=== PATIENT | female | born 1995 | race Caucasian/White ===

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

== ENCOUNTER 2017-03-26 21:43 | Emergency (ER) | payer BC ==
--- NOTE | 2017-03-26 22:04 | EDM.PDOC ---
ED HPI GENERAL MEDICAL PROBLEM - General Chief Complaint: General Stated Complaint: MEDICAL CLEARANCE Time Seen by Provider: 03/26/17 21:54 - History of Present Illness INITIAL COMMENTS - FREE TEXT/NARRATIVE: HISTORY AND PHYSICAL: History of present illness: The patient is a 21-year-old 1 para 0 who is a partially 25+ weeks and is here with police for medical screening exam. 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 According to the officer she is going to be transported to [facility] in [place] for drug treatment but they do not have an officer to transport her today so they would like medical clearance so that she can stay in custody until tomorrow when she can be transported. The patient is comfortable with this plan and currently in the ED she denies any complaints. She has been eating and drinking normally and has had no fever chills chest pain or shortness of breath and no abdominal pain. She has no pelvic pain no vaginal bleeding no urinary complaints or flank pain. She states the baby is moving and she is scheduled to deliver the baby here at our hospital with our nurse computer repair instructor. She has actually no complaints for me Review of systems: As per history of present illness and below otherwise all systems reviewed and negative. Past medical history: As per history of present illness and as reviewed below otherwise noncontributory. Surgical history: As per history of present illness and as reviewed below otherwise noncontributory. Social history: No reported history of drug or alcohol abuse. Family history: As per history of present illness and as reviewed below otherwise noncontributory. Physical exam: General: Well-developed well-nourished female who is nontoxic cooperative and in no distress in the ED. Vital signs of been reviewed by me. HEENT: Atraumatic, normocephalic, pupils reactive, negative for conjunctival pallor or scleral icterus, mucous membranes moist, throat clear, neck supple, nontender, trachea midline. Lungs: Clear to auscultation, breath sounds equal bilaterally, chest nontender. Heart: S1S2, regular rate and rhythm no overt murmurs Abdomen: Soft, nondistended, nontender. there is a gravid nontender uterus with the fundus just above the umbilicus consistent with her stated gestational age Negative for masses or hepatosplenomegaly. Negative for costovertebral tenderness. Pelvis: Stable nontender. Genitourinary: Deferred. Rectal: Deferred. Extremities: Atraumatic, negative for cords or calf pain. Neurovascular unremarkable. Neuro: Awake, alert, oriented. Cranial nerves II through XII unremarkable. Cerebellum unremarkable. Motor and sensory unremarkable throughout. Exam nonfocal. Diagnostics: Accu-Chek = 102 heart [id number]=[id number] Therapeutics: None According to the officer bedside because she is over 25 weeks he is required to bring her here even though she has no stated medical complaints. Impression: Encounter for medical screening exam, third trimester stable Definitive disposition and diagnosis as appropriate pending reevaluation and review of above. - Related Data Allergies Allergy/AdvReac Type Severity Reaction Status Date / Time No Known Allergies Allergy Verified 10/30/15 18:50 Home Meds: Home Meds . [No Known Home Meds] 01/14/14 [History] . [No Known Home Meds] 09/03/15 [History] Past Medical History - Past Health History Medical/Surgical History: Denies Medical/Surgical History Musculoskeletal History: Reports: Back Pain, Chronic Psychiatric History: Reports: Addiction, ADD, ADHD, Anxiety, Suicide Attempt Other Psychiatric History: Never confirmed the Dx- was on stratera 2014 but once she was out of rehab she quit taking it. She states, one doctor would say yes et one would say no. She underwent testing to confirm or R?O for years. - Currently self medicating. 09/11/15- denies SI at this time but states hx of SI and cutting. - Past Surgical History HEENT Surgical History: Reports: Tonsillectomy Social & Family History - Family History Family Medical History: Noncontributory - Tobacco Use Smoking Status *Q: Current Some Day Smoker Years of Tobacco use: 2 Packs/Tins Daily: 0.1 Second Hand Smoke Exposure: No - Alcohol Use Days Per Week of Alcohol Use: 0 - Recreational Drug Use Recreational Drug Use: Yes Drug Use in Last 12 Months: Yes Recreational Drug Type: Reports: Heroin, Marijuana/Hashish, Methamphetamine, Methaqualone, Cocaine Recreational Drug Use Frequency: Daily ED ROS GENERAL - Review of Systems Review Of Systems: ROS reveals no pertinent complaints other than HPI. ED EXAM, GENERAL - Physical Exam Exam: See Below (See dictation) Departure - Departure Time of Disposition: 22:03 Disposition: Home, Self-Care 01 Condition: Good Clinical Impression: Encounter for medical screening examination, Third trimester - Discharge Information Forms: ED Department Discharge Additional Instructions: The following information is given to patients seen in the emergency department who are being discharged to home. This information is to outline your options for follow-up care. We provide all patients seen in our emergency department with a follow-up referral. The need for follow-up, as well as the timing and circumstances, are variable depending upon the specifics of your emergency department visit. If you don't have a primary care physician on staff, we will provide you with a referral. We always advise you to contact your personal physician following an emergency department visit to inform them of the circumstance of the visit and for follow-up with them and/or the need for any referrals to a consulting specialist. The emergency department will also refer you to a specialist when appropriate. This referral assures that you have the opportunity for followup care with a specialist. All of these measure are taken in an effort to provide you with optimal care, which includes your followup. Under all circumstances we always encourage you to contact your private physician who remains a resource for coordinating your care. When calling for followup care, please make the office aware that this follow-up is from your recent emergency room visit. If for any reason you are refused follow-up, please contact the [facility] emergency department at and ask to speak to the emergency department charge nurse. [facility] [address] [address] Please continue with your care as scheduled and return to ER as needed and as discussed
[2017-03-27 01:24] VITALS: BP 124/60
== END 2017-03-26 22:11 | disposition home or self-care (01) ==
LOC: MW.ED 21:43
DX: Z02.89 Encounter for other administrative examinations (principal); O99.323 Drug use complicating pregnancy, third trimester; F15.90 Other stimulant use, unspecified, uncomplicated; O99.333 Smoking (tobacco) complicating pregnancy, third trimester; F17.210 Nicotine dependence, cigarettes, uncomplicated; F90.9 Attention-deficit hyperactivity disorder, unspecified type; F41.9 Anxiety disorder, unspecified; Z91.5 Personal history of self-harm
CPT/HCPCS: 82962; 99283

== ENCOUNTER 2017-07-12 00:17 | Inpatient (IN) | payer BC ==
[2017-07-12] MEDS ORDERED: Misoprostol 200 MCG Tab PO PRN (03:17)
[2017-07-12] MEDS ORDERED: Sodium Chloride 0.9% 10 ML Syringe FLUSH PRN (03:17)
[2017-07-12] MEDS ORDERED: Butorphanol 1 MG/ML SDV IVPUSH PRN (03:17)
[2017-07-12] MEDS ORDERED: Water For Irrigation,Sterile 1,000 ML Container IRR PRN (03:17)
[2017-07-12] MEDS ORDERED: Sodium Chloride 0.9% 2.5 ML Syringe FLUSH PRN (03:17)
[2017-07-12] MEDS ORDERED: Carboprost Tromethamine 250 MCG/1 ML Amp IM PRN (03:17)
[2017-07-12] MEDS ORDERED: Methylergonovine 0.2 MG/1 ML Amp IM PRN (03:17)
[2017-07-12] MEDS ORDERED: Lidocaine 1% 50 ML MDV INJECT PRN (03:17)
[2017-07-12] MEDS ORDERED: Oxytocin/0.9 % Sodium Chloride 30 UNIT/500 ML BAG IV SCH ×2 (03:30→12:15)
[2017-07-12] MEDS: Lactated Ringers 1,000 ML IV SCH ×3 (04:21→15:20)
[2017-07-12] MEDS: Nalbuphine 10 MG/1 ML Vial IVPUSH PRN ×2 (04:35→11:23)
--- NOTE | 2017-07-12 08:15 | PCM.LDHP ---
L&D History of Present Illness - General Date of Service: 07/12/17 Admit Problem/Dx: Patient Status Order with Admit Dx/Problem 07/12/17 03:17 Patient Status [ADT] Routine Admission Diagnosis/Problem Admission Diagnosis/Problem 07/12/17 08:15 21yo EDC 07/13/2017 39 6/7wks comes in labor, A-, RI, GBS neg Source of Information: Patient History Limitations: Reports: No Limitations - History of Present Illness Pain Score: 8 Improves with: Reports: None Worsens with: Reports: None Associated Symptoms: Reports: N - Related Data Allergies/Adverse Reactions: Allergies Allergy/AdvReac Type Severity Reaction Status Date / Time No Known Allergies Allergy Verified 10/30/15 18:50 Home Medications: Home Meds Vit W-Ca,Fe,FA(<1 mg) [ Vitamins] 1 each PO DAILY 03/26/17 [ History] Past Medical History - Past Health History Medical/Surgical History: Denies 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 She states, one doctor would say yes et one would say no. She underwent testing to confirm or R?O for years. - Currently self medicating. 09/11/15- denies SI at this time but states hx of SI and cutting. - Infectious Disease History Infectious Disease History: Reports: Chicken Pox - Past Surgical History HEENT Surgical History: Reports: Tonsillectomy Social & Family History - Family History Family Medical History: Noncontributory Cardiac: Reports: [place] - Tobacco Use Smoking Status *Q: Former Smoker Years of Tobacco use: 5 Packs/Tins Daily: 0.5 Used Tobacco, but Quit: Yes Month Tobacco Last Used: october Second Hand Smoke Exposure: Yes - Caffeine Use Caffeine Use: Reports: Coffee, Soda - Alcohol Use Days Per Week of Alcohol Use: 0 - Recreational Drug Use Recreational Drug Use: Yes Drug Use in Last 12 Months: Yes Recreational Drug Type: Reports: Methamphetamine Recreational Drug Use Frequency: Binges H&P Review of Systems - Review of Systems: Review Of Systems: See Below General: Reports: No Symptoms HEENT: Reports: No Symptoms Pulmonary: Reports: No Symptoms Cardiovascular: Reports: No Symptoms Gastrointestinal: Reports: No Symptoms Genitourinary: Reports: No Symptoms Musculoskeletal: Reports: No Symptoms Skin: Reports: No Symptoms Psychiatric: Reports: No Symptoms Neurological: Reports: No Symptoms Hematologic/Lymphatic: Reports: No Symptoms Immunologic: Reports: No Symptoms L&D Exam - Exam Exam: See Below - Vital Signs Weight: 67.585 kg - OB Specific Contraction Intensity: Moderate to Strong Movement: Active Heart Tones: Present Heart Tones per Min: 120 Heart Rate (FHR) Variability: Moderate (6-25 bmp) Presentation: Vertex Estimated Weight: 3300 - Jenkins Score Jenkins Score Cervix Position: Midposition Jenkins Score Consistency: Soft Jenkins Score Effacement: >80% Jenkins Score Dilation: 3-4 cm Jenkins Score 's Station: -1 ,0 Jenkins Score Total: 10 - Exam General: Alert, Oriented HEENT: Hearing Intact, PERRLA Lungs: Clear to Auscultation, Normal Respiratory Effort Cardiovascular: Regular Rate, Regular Rhythm GI/Abdominal Exam: Soft, Non-Tender, No Organomegaly (gravid), No Distention Rectal Exam: Deferred Genitourinary: Normal external exam, Normal bimanual exam, Cervical fluid Back Exam: Full Range of Motion Extremities: Normal Range of Motion, Non-Tender, No Pedal Edema, Normal Capillary Refill Skin: Warm, Dry, Intact Neurological: Reflexes Equal Bilateral, Normal Speech, Normal Tone Psychiatric: Alert, Normal Affect, Normal Mood - Patient Data Lab Results Last 24 hrs: Laboratory Results - last 24 hr 07/12/17 07/12/17 Range/Units 04:26 04:26 WBC 10.47 (4.0-11.0) K/uL RBC 3.97 L (4.30-5.90) M/uL Hgb 10.2 L (12.0-16.0) g/dL Hct 31.5 L (36.0-46.0) % MCV 79.3 L (80.0-98.0) fL MCH 25.7 L (27.0-32.0) pg MCHC 32.4 (31.0-37.0) g/dL RDW Std Deviation 40.8 (28.0-62.0) fl RDW Coeff of Shakira 14 (11.0-15.0) % Plt Count 294 (150-400) K/uL MPV 10.10 (7.40-12.00) fL Nucleated RBC % 0.0 /100WBC Nucleated RBCs # 0 K/uL Blood Type A NEGATIVE Antibody Screen NEGATIVE Result Diagrams: 07/12/17 04:26 - Problem List (1) Supervision of normal IUP (intrauterine ) in primigravida SNOMED Code(s): 03637121, 463416616, 074426745 ICD Code: Z34.00 - ENCNTR FOR SUPRVSN OF NORMAL FIRST , UNSP TRIMESTER Status: Acute Current Visit: Yes Qualifiers: Trimester: third trimester Qualified Code(s): Z34.03 - Encounter for supervision of normal first , third trimester Problem List Initiated/Reviewed/Updated: Yes Orders Last 24hrs: Active Orders 24 hr Category Date Time Status Patient Status [ADT] Routine ADT 07/12/17 03:17 Active Heart Tones [RC] CONTINUOUS Care 07/12/17 03:17 Active Non Stress Test [RC] PER UNIT ROUTINE Care 07/12/17 03:17 Active May Shower [RC] ASDIRECTED Care 07/12/17 03:17 Active Notify Provider [RC] PRN Care 07/12/17 03:17 Active Up ad Mariana [RC] ASDIRECTED Care 07/12/17 03:17 Active Vaginal Exam [RC] PRN Care 07/12/17 03:17 Active Vital Signs [RC] PER UNIT ROUTINE Care 07/12/17 03:17 Active Butorphanol [Stadol] Med 07/12/17 03:17 Active 1 mg IVPUSH ASDIRECTED PRN Carboprost Tromethamine [Hemabate DS] Med 07/12/17 03:17 Active 250 mcg IM ASDIRECTED PRN Lactated Ringers [Ringers, Lactated] 1,000 ml Med 07/12/17 03:30 Active IV ASDIRECTED Lidocaine 1% [Xylocaine 1%] Med 07/12/17 03:17 Active 50 ml INJECT .ONCE PRN Methylergonovine [Methergine] Med 07/12/17 03:17 Active 0.2 mg IM ASDIRECTED PRN Misoprostol [Cytotec] Med 07/12/17 03:17 Active 200 mcg PO .ONCE PRN Nalbuphine [Nubain] Med 07/12/17 03:17 Active 10 mg IVPUSH ASDIRECTED PRN Oxytocin/0.9 % Sodium Chloride [Oxytocin 30 Unit/500 ML Med 07/12/17 03:30 Active -NS] 30 unit in 500 ml IV ASDIRECTED Sodium Chloride 0.9% [Saline Flush] Med 07/12/17 03:17 Active 10 ml FLUSH ASDIRECTED PRN Sodium Chloride 0.9% [Saline Flush] Med 07/12/17 03:17 Active 2.5 ml FLUSH ASDIRECTED PRN Water For Irrigation,Sterile [Sterile Water for Med 07/12/17 03:17 Active Irrigation] 1,000 ml IRR ASDIRECTED PRN Scalp Electrode [WOMSER] Per Unit Routine Oth 07/12/17 03:17 Ordered Peripheral IV Insertion Adult [OM.PC] Routine Oth 07/12/17 03:17 Ordered Resuscitation Status Routine Resus Stat 07/12/17 03:17 Ordered Medication Orders Butorphanol Tartrate (Stadol) 1 mg IVPUSH ASDIRECTED PRN PRN Reason: Pain Carboprost Tromethamine (Hemabate Ds) 250 mcg IM ASDIRECTED PRN PRN Reason: Post Hemorrhage Lactated Ringer's (Ringers, Lactated) 1,000 mls @ 150 mls/hr IV ASDIRECTED [facility] Last Admin: 07/12/17 04:21 Dose: 150 mls/hr Oxytocin/Sodium Chloride (Oxytocin 30 Unit/500 Ml-Ns) 30 unit in 500 mls @ 999 mls/hr IV ASDIRECTED [facility] Lidocaine HCl (Xylocaine 1%) 50 ml INJECT .ONCE PRN PRN Reason: Laceration repair Methylergonovine Maleate (Methergine) 0.2 mg IM ASDIRECTED PRN PRN Reason: Post Hemorrhage Misoprostol (Cytotec) 200 mcg PO .ONCE PRN PRN Reason: Post Hemorrhage Nalbuphine HCl (Nubain) 10 mg IVPUSH ASDIRECTED PRN PRN Reason: Pain (severe 7-10) Last Admin: 07/12/17 04:35 Dose: 10 mg Sodium Chloride (Saline Flush) 10 ml FLUSH ASDIRECTED PRN PRN Reason: Keep Vein Open Sodium Chloride (Saline Flush) 2.5 ml FLUSH ASDIRECTED PRN PRN Reason: Keep Vein Open Sterile Water (Sterile Water For Irrigation) 1,000 ml IRR ASDIRECTED PRN PRN Reason: delivery Assessment/Plan Comment:: Labor A:21yo EDC 07/13/2017 39 6/7wks comes in labor, A-, RI, GBS neg P: Admit to L&D, pain medication or epidural prn, anticipate , Dr Le updated on pt status
[2017-07-12] MEDS ORDERED: fentaNYL 100 MCG/2 ML SDV ONE (13:57)
[2017-07-12] MEDS ORDERED: Ropivacaine HCl/PF 100 ML ONE (13:58)
[2017-07-12] MEDS ORDERED: Ropivacaine 0.2% 2 MG/ML 20 ML SDV ONE (13:58)
--- NOTE | 2017-07-12 14:34 | PCM.PREANE ---
Preanesthetic Assessment - Procedure Proposed Procedure: labor epidural - Anesthesia/Transfusion/Family Hx Anesthesia History: Prior Anesthesia Without Reaction (wisdom teeth, t/a) Family History of Anesthesia Reaction: No Transfusion History: No Prior Transfusion(s) - Review of Systems General: No Symptoms Pulmonary: No Symptoms Cardiovascular: No Symptoms Gastrointestinal: No Symptoms Neurological: No Symptoms Other: Reports: Depression, Anxiety (add,adhd,suicide attempt hx,self harm hx) - Physical Assessment Height: 1.65 m Weight: 67.585 kg ASA Class: 2 Mental Status: Alert & Oriented x3 Airway Class: Mallampati = 2 Dentition: Reports: Normal Dentition Thyro-Mental Finger Breadths: 3 Mouth Opening Finger Breadths: 3 ROM/Head Extension: Full Lungs: Clear to Auscultation, Normal Respiratory Effort Cardiovascular: Regular Rate, Regular Rhythm - Lab Values: Laboratory Last Values WBC 10.47 K/uL (4.0-11.0) 07/12/17 04:26 RBC 3.97 M/uL (4.30-5.90) L 07/12/17 04:26 Hgb 10.2 g/dL (12.0-16.0) L 07/12/17 04:26 Hct 31.5 % (36.0-46.0) L 07/12/17 04:26 MCV 79.3 fL (80.0-98.0) L 07/12/17 04:26 MCH 25.7 pg (27.0-32.0) L 07/12/17 04:26 MCHC 32.4 g/dL (31.0-37.0) 07/12/17 04:26 RDW Std Deviation 40.8 fl (28.0-62.0) 07/12/17 04:26 RDW Coeff of Shakira 14 % (11.0-15.0) 07/12/17 04:26 Plt Count 294 K/uL (150-400) 07/12/17 04:26 MPV 10.10 fL (7.40-12.00) 07/12/17 04:26 Nucleated RBC % 0.0 /100WBC 07/12/17 04:26 Nucleated RBCs # 0 K/uL 07/12/17 04:26 Blood Type A NEGATIVE 07/12/17 04:26 Antibody Screen NEGATIVE 07/12/17 04:26 - Allergies Allergies/Adverse Reactions: Allergies Allergy/AdvReac Type Severity Reaction Status Date / Time No Known Allergies Allergy Verified 10/30/15 18:50 - Blood Blood Available: Yes Product(s) Available: PRBC - Acknowledgements Anesthesia Type Planned: Epidural Pt an Appropriate Candidate for the Planned Anesthesia: Yes Alternatives and Risks of Anesthesia Discussed w Pt/Guardian: Yes Pt/Guardian Understands and Agrees with Anesthesia Plan: Yes PreAnesthesia Questionnaire - Past Health History Medical/Surgical History: Denies 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 She states, one doctor would say yes et one would say no. She underwent testing to confirm or R?O for years. - Currently self medicating. 09/11/15- denies SI at this time but states hx of SI and cutting. - Infectious Disease History Infectious Disease History: Reports: Chicken Pox - Past Surgical History HEENT Surgical History: Reports: Tonsillectomy - SUBSTANCE USE Smoking Status *Q: Former Smoker Tobacco Use Within Last Twelve Months: Cigarettes Second Hand Smoke Exposure: Yes Days Per Week of Alcohol Use: 0 Recreational Drug Use History: Yes Recreational Drug Type: Reports: Methamphetamine - HOME MEDS Home Medications: Home Meds Vit W-Ca,Fe,FA(<1 mg) [ Vitamins] 1 each PO DAILY 03/26/17 [ History] - CURRENT (IN HOUSE) MEDS Current Meds: Current Medications Butorphanol Tartrate (Stadol) 1 mg IVPUSH ASDIRECTED PRN PRN Reason: Pain Carboprost Tromethamine (Hemabate Ds) 250 mcg IM ASDIRECTED PRN PRN Reason: Post Hemorrhage Lactated Ringer's (Ringers, Lactated) 1,000 mls @ 150 mls/hr IV ASDIRECTED [facility] Last Admin: 07/12/17 14:06 Dose: 150 mls/hr Oxytocin/Sodium Chloride (Oxytocin 30 Unit/500 Ml-Ns) 30 unit in 500 mls @ 999 mls/hr IV ASDIRECTED [facility] Oxytocin/Sodium Chloride (Oxytocin 30 Unit/500 Ml-Ns) 30 unit in 500 mls @ 2 mls/hr IV TITRATE ANITA; 2 MUNITS/MIN PRN Reason: Protocol Last Titration: 07/12/17 13:37 Dose: 2 munits/min, 2 mls/hr Lidocaine HCl (Xylocaine 1%) 50 ml INJECT .ONCE PRN PRN Reason: Laceration repair Methylergonovine Maleate (Methergine) 0.2 mg IM ASDIRECTED PRN PRN Reason: Post Hemorrhage Misoprostol (Cytotec) 200 mcg PO .ONCE PRN PRN Reason: Post Hemorrhage Nalbuphine HCl (Nubain) 10 mg IVPUSH ASDIRECTED PRN PRN Reason: Pain (severe 7-10) Last Admin: 07/12/17 11:23 Dose: 10 mg Sodium Chloride (Saline Flush) 10 ml FLUSH ASDIRECTED PRN PRN Reason: Keep Vein Open Sodium Chloride (Saline Flush) 2.5 ml FLUSH ASDIRECTED PRN PRN Reason: Keep Vein Open Sterile Water (Sterile Water For Irrigation) 1,000 ml IRR ASDIRECTED PRN PRN Reason: delivery Discontinued Medications Fentanyl (Sublimaze) Confirm Administered Dose 300 mcg .ROUTE .STK-MED ONE Stop: 07/12/17 13:58 Ropivacaine (Naropin 0.2%) Confirm Administered Dose 100 mls @ as directed .ROUTE .STK-MED ONE Stop: 07/12/17 13:59 Ropivacaine (Naropin 0.2%) Confirm Administered Dose 20 ml .ROUTE .STK-MED ONE Stop: 07/12/17 13:59
--- NOTE | 2017-07-12 14:42 | PCM.PRNOTE ---
- Free Text/Narrative Note: called for pt in pain with labor. chart reviewed, pt identified. discussed procedure with pt including risks of nerve pain, nerve damage, bleeding, infection. pt agrees, consent signed previously. Pt sitting up, sterile betadine prep x 3, sterile drape. 1% lidocaine SQ at L3. #25 touhy CHARBEL saline os x 2 on left. needle redirect and advanced without further problem. no heme, no paresthesia with needle advancement. catheter placed to 12 cm at skin. test dose 1.5% lidocaine with epinephrine 1:200,000. Negative reaction noted. bolus of 100 mcg fentanyl with 4 ml ropivicaine via epidural catheter. Pt felt relief within two contractions. Level with cold/wet sensation noted to be T10 bilat. Pt in ALLISON position. Epidural drip of 0.2% ropivicaine with fentanyl 2 mcg /ml started at 8 ml/hr with PCEA bolus set at 5 ml/15 min with hour limit of 28 ml. educated regarding use of PCEA pump. Pain level 2/10, no complications noted
[2017-07-12] MEDS ORDERED: Lanolin 100% Cream 7 GM Tube TOP PRN (22:21)
[2017-07-12] MEDS ORDERED: Witch Hazel Medicated Pads 40/Jar TOP PRN (22:21)
[2017-07-12] MEDS ORDERED: Acetaminophen 500 MG Tab PO PRN (22:21)
[2017-07-12] MEDS ORDERED: Docusate Sodium 100 MG Cap PO PRN (22:21)
[2017-07-12] MEDS ORDERED: Benzocaine/Menthol 20%-0.5% Spray 78 GM Cannister TOP PRN (22:21)
[2017-07-12] MEDS ORDERED: Ibuprofen 400 MG Tab PO PRN (22:21)
[2017-07-12] MEDS ORDERED: Bisacodyl 10 MG Supp RECTAL PRN (22:21)
--- NOTE | 2017-07-12 23:13 | OR ---
SURGEON: Farhat Le MD DATE OF PROCEDURE: DELIVERY NOTE: Ms. Wong is 21-year-old primigravida. She is followed in our clinic primarily by our nurse refrigeration specialist, Renea Braun. The patient has no complication prenatally. She is admitted in active labor. She required some Pitocin augmentation to enhance the labor. She had epidural anesthesia for labor analgesia. The patient became complete-complete and she was pushed for an hour and a half and she was able to accomplish normal spontaneous vaginal delivery of a female fetus. score reported to be 8 and 9. The weight is not available. The placenta delivered spontaneous complete and intact without any problem. There was no need for episiotomy and there was no laceration. No perineal or labial laceration. Estimated blood loss was 250 to 300 mL in this . The heart rate was category 1 through the entire process of labor. There was no complication. KRISTAL / EVITA /[id number]
[2017-07-13] MEDS: Ibuprofen 800 MG Tab PO PRN ×3 (06:01→20:25)
--- NOTE | 2017-07-13 06:52 | PCM48HPAN ---
Post Anesthesia Note - EVALUATION WITHIN 48HRS OF ANESTHETIC Vital Signs in Normal Range: Yes Patient Participated in Evaluation: Yes Respiratory Function Stable: Yes Airway Patent: Yes Cardiovascular Function Stable: Yes Hydration Status Stable: Yes Pain Control Satisfactory: Yes Nausea and Vomiting Control Satisfactory: Yes Mental Status Recovered: Yes
[2017-07-13] MEDS: Acetaminophen 500 MG Tab PO PRN (09:32)
--- NOTE | 2017-07-13 09:59 | PCM.PNPP ---
- General Info Date of Service: 07/13/17 Functional Status: Reports: Pain Controlled - Review of Systems General: Reports: No Symptoms HEENT: Reports: No Symptoms Pulmonary: Reports: No Symptoms Cardiovascular: Reports: No Symptoms Gastrointestinal: Reports: No Symptoms Genitourinary: Reports: No Symptoms Musculoskeletal: Reports: No Symptoms Skin: Reports: No Symptoms Neurological: Reports: No Symptoms Psychiatric: Reports: No Symptoms - General Info Date of Service: 07/13/17 - Patient Data Vital Signs - Most Recent: Last Vital Signs Temp 36.9 C 07/13/17 04:30 Pulse 74 07/13/17 04:30 Resp 16 07/13/17 04:30 BP 112/52 L 07/13/17 04:30 Pulse Ox 98 07/13/17 04:30 Weight - Most Recent: 67.585 kg I&O - Last 24 Hours: Intake & Output 07/12/17 07/13/17 07/13/17 22:59 06:59 14:59 Output Total 1000 Balance -1000 Lab Results - Last 24 Hours: Laboratory Results - last 24 hr 07/13/17 Range/Units 05:44 Hgb 9.4 L (12.0-16.0) g/dL Hct 29.0 L (36.0-46.0) % Med Orders - Current: Current Medications Acetaminophen (Tylenol Extra Strength) 500 mg PO Q4H PRN PRN Reason: Pain Acetaminophen (Tylenol Extra Strength) 1,000 mg PO Q4H PRN PRN Reason: Pain Last Admin: 07/13/17 09:32 Dose: 1,000 mg Benzocaine/Menthol (Dermoplast Pain Relief 20%-0.5% [place]) 78 gm TOP ASDIRECTED PRN PRN Reason: Perineal Comfort Measure Bisacodyl (Dulcolax) 10 mg RECTAL .ONCE PRN PRN Reason: Constipation Butorphanol Tartrate (Stadol) 1 mg IVPUSH ASDIRECTED PRN PRN Reason: Pain Carboprost Tromethamine (Hemabate Ds) 250 mcg IM ASDIRECTED PRN PRN Reason: Post Hemorrhage Docusate Sodium (Colace) 100 mg PO BID PRN PRN Reason: Constipation Emollient Ointment (Lansinoh Hpa) 0 gm TOP ASDIRECTED PRN PRN Reason: Sore Nipples Lactated Ringer's (Ringers, Lactated) 1,000 mls @ 150 mls/hr IV ASDIRECTED ANITA Last Admin: 07/12/17 15:20 Dose: 150 mls/hr Oxytocin/Sodium Chloride (Oxytocin 30 Unit/500 Ml-Ns) 30 unit in 500 mls @ 999 mls/hr IV ASDIRECTED ANITA Oxytocin/Sodium Chloride (Oxytocin 30 Unit/500 Ml-Ns) 30 unit in 500 mls @ 2 mls/hr IV TITRATE ANITA; 2 MUNITS/MIN PRN Reason: Protocol Last Titration: 07/12/17 23:30 Dose: 500 munits/min, 500 mls/hr Ibuprofen (Motrin) 400 mg PO Q4H PRN PRN Reason: Pain Ibuprofen (Motrin) 800 mg PO Q6H PRN PRN Reason: Pain Last Admin: 07/13/17 06:01 Dose: 800 mg Lidocaine HCl (Xylocaine 1%) 50 ml INJECT .ONCE PRN PRN Reason: Laceration repair Methylergonovine Maleate (Methergine) 0.2 mg IM ASDIRECTED PRN PRN Reason: Post Hemorrhage Misoprostol (Cytotec) 200 mcg PO .ONCE PRN PRN Reason: Post Hemorrhage Nalbuphine HCl (Nubain) 10 mg IVPUSH ASDIRECTED PRN PRN Reason: Pain (severe 7-10) Last Admin: 07/12/17 11:23 Dose: 10 mg Oxycodone HCl (Oxycodone) 5 mg PO Q2H PRN PRN Reason: Pain Sodium Chloride (Saline Flush) 10 ml FLUSH ASDIRECTED PRN PRN Reason: Keep Vein Open Sodium Chloride (Saline Flush) 2.5 ml FLUSH ASDIRECTED PRN PRN Reason: Keep Vein Open Sterile Water (Sterile Water For Irrigation) 1,000 ml IRR ASDIRECTED PRN PRN Reason: delivery Witch Maryam (Tucks) 1 pad TOP ASDIRECTED PRN PRN Reason: comfort care Discontinued Medications Fentanyl (Sublimaze) Confirm Administered Dose 300 mcg .ROUTE .STK-MED ONE Stop: 07/12/17 13:58 Ropivacaine (Naropin 0.2%) Confirm Administered Dose 100 mls @ as directed .ROUTE .STK-MED ONE Stop: 07/12/17 13:59 Ropivacaine (Naropin 0.2%) Confirm Administered Dose 20 ml .ROUTE .STK-MED ONE Stop: 07/12/17 13:59 - Interaction Infant Disposition, : [place] in Room with Family Infant Interaction: Holding Infant Feeding: Attempted ; Nursed Fair/Poor Support Person: , Mother, Sister, Significant Other - Recovery Exam Fundal Tone: Firm Fundal Level: 1 Fingerbreadths Below Umbilicus Fundal Placement: Midline Lochia Amount: Scant Lochia Color: Rubra/Red Perineum Description: Intact, Minimal Bruising/Swelling Episiotomy/Laceration: None Bladder Status: Nonpalpable Urinary Elimination: Voided - Exam General: Alert, Oriented HEENT: Pupils Equal Neck: Supple Lungs: Clear to Auscultation, Normal Respiratory Effort Cardiovascular: Regular Rate, Regular Rhythm GI/Abdominal Exam: Normal Bowel Sounds, Soft, Non-Tender, No Organomegaly, No Distention, No Abnormal Bruit, No Mass, Pelvis Stable Extremities: Normal Inspection, Normal Range of Motion, Non-Tender, No Pedal Edema, Normal Capillary Refill Skin: Warm, Dry, Intact Wound/Incisions: Healing Well Neurological: No New Focal Deficit Psy/Mental Status: Alert, Normal Affect, Normal Mood - Problem List Review Problem List Initiated/Reviewed/Updated: Yes - My Orders Last 24 Hours: My Active Orders 07/12/17 22:21 Patient Status [ADT] Routine May Shower [RC] ASDIRECTED Up ad [place] [RC] ASDIRECTED Vital Signs [RC] PER UNIT ROUTINE Acetaminophen [Tylenol Extra Strength] 1,000 mg PO Q4H PRN Acetaminophen [Tylenol Extra Strength] 500 mg PO Q4H PRN Benzocaine/Menthol [Dermoplast Pain Relief 20%-0.5% [place]] 78 gm TOP ASDIRECTED PRN Bisacodyl [Dulcolax] 10 mg RECTAL .ONCE PRN Docusate Sodium [Colace] 100 mg PO BID PRN Ibuprofen [Motrin] 400 mg PO Q4H PRN Ibuprofen [Motrin] 800 mg PO Q6H PRN Lanolin [Lansinoh HPA] See Dose Instructions TOP ASDIRECTED PRN Witch Maryam [Tucks] 1 pad TOP ASDIRECTED PRN oxyCODONE 5 mg PO Q2H PRN Assess Lochia [WOMSER] Per Unit Routine Assess Uterine Involution [WOMSER] Per Unit Routine Peripheral IV Discontinue [OM.PC] Routine - Plan Plan:: Labor A:21yo EDC 07/13/2017 39 6/7wks comes in labor, A-, RI, GBS neg P: Admit to L&D, pain medication or epidural prn, anticipate , Dr Le updated on pt status
[2017-07-14] MEDS: oxyCODONE 5 MG Tab PO PRN ×3 (08:52→13:27)
--- NOTE | 2017-07-14 09:49 | PCM.PNPP ---
- General Info Date of Service: 07/14/17 Functional Status: Reports: Pain Controlled - Review of Systems General: Reports: No Symptoms HEENT: Reports: No Symptoms Pulmonary: Reports: No Symptoms Cardiovascular: Reports: No Symptoms Gastrointestinal: Reports: No Symptoms Genitourinary: Reports: No Symptoms Musculoskeletal: Reports: No Symptoms Skin: Reports: No Symptoms Neurological: Reports: No Symptoms Psychiatric: Reports: No Symptoms - General Info Date of Service: 07/14/17 - Patient Data Vital Signs - Most Recent: Last Vital Signs Temp 36.6 C 07/14/17 04:00 Pulse 73 07/13/17 09:15 Resp 16 07/14/17 04:00 BP 116/55 L 07/14/17 04:00 Pulse Ox 98 07/14/17 04:00 Weight - Most Recent: 67.585 kg Med Orders - Current: Current Medications Acetaminophen (Tylenol Extra Strength) 500 mg PO Q4H PRN PRN Reason: Pain Acetaminophen (Tylenol Extra Strength) 1,000 mg PO Q4H PRN PRN Reason: Pain Last Admin: 07/13/17 09:32 Dose: 1,000 mg Benzocaine/Menthol (Dermoplast Pain Relief 20%-0.5% [place]) 78 gm TOP ASDIRECTED PRN PRN Reason: Perineal Comfort Measure Bisacodyl (Dulcolax) 10 mg RECTAL .ONCE PRN PRN Reason: Constipation Butorphanol Tartrate (Stadol) 1 mg IVPUSH ASDIRECTED PRN PRN Reason: Pain Carboprost Tromethamine (Hemabate Ds) 250 mcg IM ASDIRECTED PRN PRN Reason: Post Hemorrhage Docusate Sodium (Colace) 100 mg PO BID PRN PRN Reason: Constipation Last Admin: 07/14/17 08:53 Dose: 100 mg Emollient Ointment (Lansinoh Hpa) 0 gm TOP ASDIRECTED PRN PRN Reason: Sore Nipples Lactated Ringer's (Ringers, Lactated) 1,000 mls @ 150 mls/hr IV ASDIRECTED ANITA Last Admin: 07/12/17 15:20 Dose: 150 mls/hr Oxytocin/Sodium Chloride (Oxytocin 30 Unit/500 Ml-Ns) 30 unit in 500 mls @ 999 mls/hr IV ASDIRECTED [facility] Oxytocin/Sodium Chloride (Oxytocin 30 Unit/500 Ml-Ns) 30 unit in 500 mls @ 2 mls/hr IV TITRATE ANITA; 2 MUNITS/MIN PRN Reason: Protocol Last Titration: 07/12/17 23:30 Dose: 500 munits/min, 500 mls/hr Ibuprofen (Motrin) 400 mg PO Q4H PRN PRN Reason: Pain Ibuprofen (Motrin) 800 mg PO Q6H PRN PRN Reason: Pain Last Admin: 07/13/17 20:25 Dose: 800 mg Lidocaine HCl (Xylocaine 1%) 50 ml INJECT .ONCE PRN PRN Reason: Laceration repair Methylergonovine Maleate (Methergine) 0.2 mg IM ASDIRECTED PRN PRN Reason: Post Hemorrhage Misoprostol (Cytotec) 200 mcg PO .ONCE PRN PRN Reason: Post Hemorrhage Nalbuphine HCl (Nubain) 10 mg IVPUSH ASDIRECTED PRN PRN Reason: Pain (severe 7-10) Last Admin: 07/12/17 11:23 Dose: 10 mg Oxycodone HCl (Oxycodone) 5 mg PO Q2H PRN PRN Reason: Pain Last Admin: 07/14/17 08:52 Dose: 5 mg Sodium Chloride (Saline Flush) 10 ml FLUSH ASDIRECTED PRN PRN Reason: Keep Vein Open Sodium Chloride (Saline Flush) 2.5 ml FLUSH ASDIRECTED PRN PRN Reason: Keep Vein Open Sterile Water (Sterile Water For Irrigation) 1,000 ml IRR ASDIRECTED PRN PRN Reason: delivery Witch Maryam (Tucks) 1 pad TOP ASDIRECTED PRN PRN Reason: comfort care Discontinued Medications Fentanyl (Sublimaze) Confirm Administered Dose 300 mcg .ROUTE .STK-MED ONE Stop: 07/12/17 13:58 Ropivacaine (Naropin 0.2%) Confirm Administered Dose 100 mls @ as directed .ROUTE .STK-MED ONE Stop: 07/12/17 13:59 Ropivacaine (Naropin 0.2%) Confirm Administered Dose 20 ml .ROUTE .STK-MED ONE Stop: 07/12/17 13:59 - Infant Interaction Disposition, : [place] in Room with Family Interaction: Holding Feeding: Attempted ; Nursed Fair/Poor Support Person: , Mother, Sister, Significant Other - Recovery Exam Fundal Tone: Firm Fundal Level: 1 Fingerbreadths Below Umbilicus Fundal Placement: Midline Lochia Amount: Scant Lochia Color: Rubra/Red Perineum Description: Intact, Minimal Bruising/Swelling Episiotomy/Laceration: None Bladder Status: Nonpalpable Urinary Elimination: Voided - Exam General: Alert, Oriented HEENT: Pupils Equal Neck: Supple Lungs: Clear to Auscultation, Normal Respiratory Effort Cardiovascular: Regular Rate, Regular Rhythm GI/Abdominal Exam: Normal Bowel Sounds, Soft, Non-Tender, No Organomegaly, No Distention, No Abnormal Bruit, No Mass, Pelvis Stable Extremities: Normal Inspection, Normal Range of Motion, Non-Tender, No Pedal Edema, Normal Capillary Refill Skin: Warm, Dry, Intact Wound/Incisions: Healing Well Neurological: No New Focal Deficit Psy/Mental Status: Alert, Normal Affect, Normal Mood - Problem List Review Problem List Initiated/Reviewed/Updated: Yes - Assessment Assessment:: Well status post normal spontaneous vaginal delivery we would send her home today - Plan Plan:: Labor A:21yo EDC 07/13/2017 39 6/7wks comes in labor, A-, RI, GBS neg P: Admit to L&D, pain medication or epidural prn, anticipate , Dr Le updated on pt status
[2017-07-14] MEDS: Acetaminophen 500 MG Tab PO PRN (13:27)
[2017-07-14 16:15] VITALS: BP 114/67
== END 2017-07-14 14:00 | disposition home or self-care (01) | DRG 560 ==
LOC: MW.OBCHECK 00:17 → MW.OB 00:19 → MW.OBCHECK 03:17 → MW.OB 03:17 → OBSVTOIN 22:12 → MW.OB 07-13 00:08
PROVIDERS: ADMIT Obstetrics & Gynecology; ATTEND Obstetrics & Gynecology
PROC: 10E0XZZ Delivery of Products of Conception, External Approach (ICD-10-PCS; principal; 2017-07-12)
DX: O80 Encounter for full-term uncomplicated delivery (principal); Z3A.39 39 weeks gestation of pregnancy; Z37.0 Single live birth
CPT/HCPCS: 36415; 51702; 59025; 59409; 85014; 85018; 85027; 86850; 86900; 86901; A9270-GY; J2300; J2590; J2795; J3010; J7120

== ENCOUNTER 2019-01-05 19:18 | Emergency (ER) | payer BC ==
--- NOTE | 2019-01-05 19:39 | EDM.PDOC ---
ED HPI GENERAL MEDICAL PROBLEM - General Chief Complaint: Skin Complaint Stated Complaint: INFECTION IN THE ARM Time Seen by Provider: 01/05/19 19:19 Source of Information: Reports: Patient History Limitations: Reports: No Limitations - History of Present Illness INITIAL COMMENTS - FREE TEXT/NARRATIVE: HISTORY AND PHYSICAL: History of present illness: Patient is a 23-year-old female presents to the ED today for concern of redness at the site of injection that she had injected meth with a few days ago. Patient states she had a relapse and her drug abuse and injected meth and since then has noticed slight redness at the injection site. Patient denies any other symptoms at this time and denies any other health history. Patient denies fever, chills, chest pain, shortness of breath, or cough. Denies headache, neck stiff ness, change in vision, syncope, or near syncope. Denies nausea, vomiting, abdominal pain, diarrhea, constipation, or dysuria. Has not noted any blood in urine or stool. Patient has been eating and drinking appropriately. Review of systems: As per history of present illness and below otherwise all systems reviewed and negative. Past medical history: As per history of present illness and as reviewed below otherwise noncontributory. Surgical history: As per history of present illness and as reviewed below otherwise noncontributory. Social history: See social history for further information Family history: As per history of present illness and as reviewed below otherwise noncontributory. Physical exam: General: Patient is alert, oriented, and in no acute distress. Patient sitting comfortably on exam table. HEENT: Atraumatic, normocephalic, pupils equal and reactive bilaterally, negative for conjunctival pallor or scleral icterus, mucous membranes moist, TMs normal bilaterally, throat clear, neck supple, nontender, trachea midline. No drooling or trismus noted. No meningeal signs. No hot potato voice noted. Lungs: Clear to auscultation, breath sounds equal bilaterally, chest nontender. Heart: S1S2, regular rate and rhythm without overt murmur Abdomen: Soft, nondistended, nontender. Negative for masses or hepatosplenomegaly. Negative for costovertebral tenderness. Pelvis: Stable nontender. Genitourinary: Deferred. Rectal: Deferred. Skin: There is a 1 cm circumferential area of erythema in the right antecubital space with slight induration where patient had injected. There is no tracking of the redness and no apparent abscess. Skin is intact. No rashes or other lesions noted. Extremities: See skin Atraumatic, negative for cords or calf pain. Neurovascular unremarkable. Neuro: Awake, alert, oriented. Cranial nerves II through XII unremarkable. Cerebellum unremarkable. Motor and sensory unremarkable throughout. Exam nonfocal. Notes: Dr. Walker verbally involved in patient care. Discussed the importance for follow-up with a primary care provider. Voices understanding and is agreeable to plan of care. Denies any further questions or concerns at this time. Diagnostics: CBC, BMP, Elbow XR Therapeutics: None Prescription: Bactrim Impression: Localized cellulitis of antecubital fossa Drug abuse Plan: 1. Take medications as prescribed. Monitor for signs of infection as discussed. You can alternate ibuprofen and Tylenol as directed for pain and discomfort. 2. Please do not inject or use drugs.Follow up with primary care provider as discussed. 3. Return to the ED as needed and as discussed. Definitive disposition and diagnosis as appropriate pending reevaluation and review of above. right arm Pain Score (Numeric/FACES): 2 - Related Data Allergies Allergy/AdvReac Type Severity Reaction Status Date / Time No Known Allergies Allergy Verified 01/05/19 19:23 Home Meds: Home Meds Citalopram Hydrobromide [Celexa] 40 mg PO DAILY 03/24/18 [History] Lurasidone HCl [Latuda] 0 mg PO DAILY 01/05/19 [History] buPROPion [Wellbutrin] 0 mg PO DAILY 01/05/19 [History] Past Medical History - Past Health History Medical/Surgical History: Denies Medical/Surgical History HEENT History: Reports: None Cardiovascular History: Reports: None Respiratory History: Reports: None Gastrointestinal History: Reports: None Genitourinary History: Reports: None [employer]ER [employer] 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 She states, one doctor would say yes et one would say no. She underwent testing to confirm or R?O for years. - Currently self medicating. 09/11/15- denies SI at this time but states hx of SI and cutting. Endocrine/Metabolic History: Reports: None Hematologic History: Reports: None Immunologic History: Reports: None Oncologic (Cancer) History: Reports: None Dermatologic History: Reports: None - Infectious Disease History Infectious Disease History: Reports: Chicken Pox - Past Surgical History HEENT Surgical History: Reports: Tonsillectomy Social & Family History - Family History Family Medical History: Noncontributory Cardiac: Reports: MD - Caffeine Use Caffeine Use: Reports: Coffee, Soda ED ROS GENERAL - Review of Systems Review Of Systems: ROS reveals no pertinent complaints other than HPI. ED EXAM, SKIN/RASH Exam: See Below (See dictation) Course - Vital Signs Last Recorded V/S: Last Vital Signs Temp 36.1 C 01/05/19 19:20 Pulse 76 01/05/19 19:20 Resp 18 01/05/19 19:20 BP 117/86 01/05/19 19:20 Pulse Ox 95 01/05/19 19:20 - Orders/Labs/Meds Orders: Active Orders 24 hr Category Date Time Status Elbow 2V Rt [CR] Stat Exams 01/05/19 19:59 Taken Labs: Laboratory Tests 01/05/19 01/05/19 Range/Units 19:46 19:46 WBC 4.53 (4.0-11.0) K/uL RBC 4.11 L (4.30-5.90) M/uL Hgb 12.9 (12.0-16.0) g/dL Hct 38.7 (36.0-46.0) % MCV 94.2 (80.0-98.0) fL MCH 31.4 (27.0-32.0) pg MCHC 33.3 (31.0-37.0) g/dL RDW Std Deviation 45.1 (28.0-62.0) fl RDW Coeff of Shakira 13 (11.0-15.0) % Plt Count 289 (150-400) K/uL MPV 9.50 (7.40-12.00) fL Neut % (Auto) 45.7 L (48.0-80.0) % Lymph % (Auto) 41.5 H (16.0-40.0) % [place] % (Auto) 7.7 (0.0-15.0) % Eos % (Auto) 4.0 (0.0-7.0) % Baso % (Auto) 1.1 (0.0-1.5) % Neut # (Auto) 2.1 (1.4-5.7) K/uL Lymph # (Auto) 1.9 (0.6-2.4) K/uL [place] # (Auto) 0.4 (0.0-0.8) K/uL Eos # (Auto) 0.2 (0.0-0.7) K/uL Baso # (Auto) 0.1 (0.0-0.1) K/uL Nucleated RBC % 0.0 /100WBC Nucleated RBCs # 0 K/uL Sodium 138 (136-145) mmol/L Potassium 4.0 (3.5-5.1) mmol/L Chloride 103 (98-107) mmol/L Carbon Dioxide 25.7 (21.0-32.0) mmol/L BUN 19 H (7.0-18.0) mg/dL Creatinine 0.9 (0.6-1.0) mg/dL Est Cr Clr Drug Dosing 96.15 mL/min Estimated GFR (MDRD) > 60.0 ml/min Glucose 109 H (74-106) mg/dL Calcium 9.2 (8.5-10.1) mg/dL Departure - Departure Time of Disposition: 20:24 Disposition: Home, Self-Care 01 Clinical Impression: Cellulitis of antecubital fossa, Drug abuse - Discharge Information Referrals: PCP,None [Primary Care Provider] - Forms: ED Department Discharge Additional Instructions: The following information is given to patients seen in the emergency department who are being discharged to home. This information is to outline your options for follow-up care. We provide all patients seen in our emergency department with a follow-up referral. The need for follow-up, as well as the timing and circumstances, are variable depending upon the specifics of your emergency department visit. If you don't have a primary care physician on staff, we will provide you with a referral. We always advise you to contact your personal physician following an emergency department visit to inform them of the circumstance of the visit and for follow-up with them and/or the need for any referrals to a consulting specialist. The emergency department will also refer you to a specialist when appropriate. This referral assures that you have the opportunity for follow-up care with a specialist. All of these measure are taken in an effort to provide you with optimal care, which includes your follow-up. Under all circumstances we always encourage you to contact your private physician who remains a resource for coordinating your care. When calling for follow-up care, please make the office aware that this follow-up is from your recent emergency room visit. If for any reason you are refused follow-up, please contact the [facility] Emergency Department at and asked to speak to the emergency department charge nurse. [facility] [address] [place] [id number] [facility] [address] [place] [id number] 1. Take medications as prescribed. Monitor for signs of infection as discussed. You can alternate ibuprofen and Tylenol as directed for pain and discomfort. 2. Please do not inject or use drugs.Follow up with primary care provider as discussed. 3. Return to the ED as needed and as discussed.
[2019-01-05 20:10] LABS: CHLORIDE,CL 103 mmol/L (98-107); SODIUM,NA 138 mmol/L (136-145)
--- NOTE | 2019-01-05 20:26 | CR ---
INDICATION: r/o FB and gas, IV drug user RIGHT ELBOW No fracture, dislocation, or destructive lesion of bone is seen. No significant arthritic changes or soft tissue abnormalities are identified. No radiopaque foreign body or soft tissue gas is demonstrated. IMPRESSION: Negative right elbow radiographs. LOREN FINLEY MD [facility] Dictated by: Nicolás Finley MD @ 01/05/2019 20:24:55 (Electronically Signed)
[2019-01-05 20:39] VITALS: BP 124/70
== END 2019-01-05 20:37 | disposition home or self-care (01) ==
LOC: MW.ED 19:18
DX: O99.712 Diseases of the skin and subcutaneous tissue complicating pregnancy, second trimester (principal); L03.113 Cellulitis of right upper limb; O99.342 Other mental disorders complicating pregnancy, second trimester; F41.9 Anxiety disorder, unspecified; F32.9 Major depressive disorder, single episode, unspecified; F90.9 Attention-deficit hyperactivity disorder, unspecified type; Z79.899 Other long term (current) drug therapy; Z3A.25 25 weeks gestation of pregnancy
CPT/HCPCS: 36415; 73070-26-RT; 73070-RT; 80048; 85025; 99283; 99283-25

== ENCOUNTER 2019-01-29 16:27 | Emergency (ER) | payer BC ==
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
[2019-01-29 17:25] LABS: ACETAMINOPHEN <2.0 ug/mL
[2019-01-29 17:34] LABS: CHLORIDE,CL 106 mmol/L (98-107); SODIUM,NA 140 mmol/L (136-145)
[2019-01-29 17:49] VITALS: BP 134/73
== END 2019-01-29 19:00 ==
LOC: MW.ED 16:27
DX: F32.9 Major depressive disorder, single episode, unspecified (principal); F41.9 Anxiety disorder, unspecified; F17.210 Nicotine dependence, cigarettes, uncomplicated; Z98.890 Other specified postprocedural states; Z79.899 Other long term (current) drug therapy
CPT/HCPCS: 36415; 80053; 80305; 81003; 81025; 84443; 85025; 99285; G0480

== ENCOUNTER 2019-02-07 23:18 | Emergency (ER) | payer BC ==
--- NOTE | 2019-02-07 23:47 | EDM.PDOC ---
ED HPI GENERAL MEDICAL PROBLEM - General Chief Complaint: General Stated Complaint: DIZZINESS Time Seen by Provider: 02/07/19 23:35 - History of Present Illness INITIAL COMMENTS - FREE TEXT/NARRATIVE: HISTORY AND PHYSICAL: History of present illness: The patient is a 23-year-old female with a history of bipolar who was recently here on January 29 and transferred for suicidal ideation to [facility] where she was evaluated and was started on Depakote as a new medication and she says that she started feeling dizzy episodically 4 days after starting the new medication. She is not having any vomiting until one time yesterday but she has had nausea intermittently and the dizziness is like a spinning-like sensation that comes and goes and is not consistent. She is not passing out or blacking out and she has no head neck or back pain no chest pain or shortness of breath no fevers or chills and no abdominal complaints. The patient says she has been clean from drugs for 31 days and she has a scheduled appointment tomorrow with her counselor to discuss these medication issues. She is here tonight only at the insistence of her mom to get checked out. Admits she drinks mostly caffeinated products and is not good hydrating The patient tells me that the sensation she has is more with position change but can also occur when she lays flat and it is a spinning-like feeling not lightheadedness like she's going to pass out she has no visual changes Review of systems: As per history of present illness and below otherwise all systems reviewed and negative. Past medical history: As per history of present illness and as reviewed below otherwise noncontributory. Surgical history: As per history of present illness and as reviewed below otherwise noncontributory. Social history: No reported history of drug or alcohol abuse. Family history: As per history of present illness and as reviewed below otherwise noncontributory. Physical exam: General: Well-developed well-nourished female who is nontoxic and vital signs were noted by me HEENT: Atraumatic, normocephalic, pupils reactive, EOMs are intact, there is no nystagmus, negative for conjunctival pallor or scleral icterus, mucous membranes moist, throat clear, neck supple, nontender, trachea midline. No cervical adenopathy or nuchal rigidity and TMs are normal bilaterally Lungs: Clear to auscultation, breath sounds equal bilaterally, chest nontender. Heart: S1S2, regula rate and rhythm no overt murmurs Abdomen: Soft, nondistended, nontender. Negative for masses or hepatosplenomegaly. Negative for costovertebral tenderness. Pelvis: Stable nontender. Genitourinary: Deferred. Rectal: Deferred. Extremities: Atraumatic, negative for cords or calf pain. Neurovascular unremarkable. No edema full range of motion without defects or deficits Neuro: Awake, alert, oriented. Cranial nerves II through XII unremarkable. Cerebellum unremarkable. Motor and sensory unremarkable throughout. Exam nonfocal. Gait was steady into the ED Diagnostics: EKG orthostatic vital CBC CMP magnesium troponin UA UDS [employer]: Discussed with the patient that I would hold the dose of her Depakote this evening, she says she takes it in the night before sleep, until she sees his new physician/provider tomorrow to discuss this medication and its dose and her side effects. She is aware that all of her other workup is normal and I will give her some Zofran for nausea that she can take at home as needed. Advised on reasons to return Impression: Episodic dizziness with nausea, rule out new medication reaction Definitive disposition and diagnosis as appropriate pending reevaluation and review of above. low back Pain Score (Numeric/FACES): 3 - Related Data Allergies Allergy/AdvReac Type Severity Reaction Status Date / Time No Known Allergies Allergy Verified 01/29/19 16:31 Home Meds: Home Meds Citalopram Hydrobromide [Celexa] 40 mg PO DAILY 03/24/18 [History] Lurasidone HCl [Latuda] 40 mg PO DAILY 01/05/19 [History] Divalproex Sodium [Depakote] 1,500 mg PO DAILY 02/07/19 [History] Past Medical History - Past Health History Medical/Surgical History: Denies Medical/Surgical History HEENT History: Reports: None Cardiovascular History: Reports: None Respiratory History: Reports: None Gastrointestinal History: Reports: None Genitourinary History: Reports: None 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 She states, one doctor would say yes et one would say no. She underwent testing to confirm or R?O for years. - Currently self medicating. 09/11/15- denies SI at this time but states hx of SI and cutting. Endocrine/Metabolic History: Reports: None Hematologic History: Reports: None Immunologic History: Reports: None Oncologic (Cancer) History: Reports: None Dermatologic History: Reports: None - Infectious Disease History Infectious Disease History: Reports: Chicken Pox - Past Surgical History Head Surgeries/Procedures: Reports: None HEENT Surgical History: Reports: Tonsillectomy Social & Family History - Family History Family Medical History: Noncontributory Cardiac: Reports: NH - Tobacco Use Smoking Status *Q: Current Every Day Smoker Years of Tobacco use: 2 Packs/Tins Daily: 1 - Caffeine Use Caffeine Use: Reports: Other Other Caffeine Use: dietary suppliments - Recreational Drug Use Recreational Drug Use: No ED ROS GENERAL - Review of Systems Review Of Systems: ROS reveals no pertinent complaints other than HPI. ED EXAM, GENERAL - Physical Exam Exam: See Below (See dictation) Course - Vital Signs Last Recorded V/S: Last Vital Signs Temp 35.7 C 02/07/19 23:20 Pulse 81 02/07/19 23:20 Resp 18 02/07/19 23:20 BP 126/73 02/07/19 23:20 Pulse Ox 98 02/07/19 23:20 Orthostatic Blood Pressure [ 106/70 Standing] Orthostatic Blood Pressure [ 114/71 Sitting] Orthostatic Blood Pressure [ 117/66 Supine] - Orders/Labs/Meds Orders: Active Orders 24 hr Category Date Time Status EKG Documentation Completion [RC] STAT Care 02/07/19 23:34 Active Orthostatic Vital Signs [RC] ASDIRECTED Care 02/07/19 23:34 Active Labs: Laboratory Tests 02/07/19 02/07/19 02/07/19 Range/Units 23:30 23:30 23:30 WBC (4.0-11.0) K/uL RBC (4.30-5.90) M/uL Hgb (12.0-16.0) g/dL Hct (36.0-46.0) % MCV (80.0-98.0) fL MCH (27.0-32.0) pg MCHC (31.0-37.0) g/dL RDW Std Deviation (28.0-62.0) fl RDW Coeff of Shakira (11.0-15.0) % Plt Count (150-400) K/uL MPV (7.40-12.00) fL Neut % (Auto) (48.0-80.0) % Lymph % (Auto) (16.0-40.0) % Tyrrell % (Auto) (0.0-15.0) % Eos % (Auto) (0.0-7.0) % Baso % (Auto) (0.0-1.5) % Neut # (Auto) (1.4-5.7) K/uL Lymph # (Auto) (0.6-2.4) K/uL Tyrrell # (Auto) (0.0-0.8) K/uL Eos # (Auto) (0.0-0.7) K/uL Baso # (Auto) (0.0-0.1) K/uL Nucleated RBC % /100WBC Nucleated RBCs # K/uL Sodium (136-145) mmol/L Potassium (3.5-5.1) mmol/L Chloride (98-107) mmol/L Carbon Dioxide (21.0-32.0) mmol/L BUN (7.0-18.0) mg/dL Creatinine (0.6-1.0) mg/dL Est Cr Clr Drug Dosing mL/min Estimated GFR (MDRD) ml/min Glucose (74-106) mg/dL Calcium (8.5-10.1) mg/dL Magnesium (1.8-2.4) mg/dL Total Bilirubin (0.2-1.0) mg/dL AST (15-37) IU/L ALT (14-63) IU/L Alkaline Phosphatase (46-116) U/L Troponin I (0.000-0.056) ng/mL Total Protein (6.4-8.2) g/dL Albumin (3.4-5.0) g/dL Globulin (2.6-4.0) g/dL Albumin/Globulin Ratio (0.9-1.6) Urine Color YELLOW Urine Appearance CLEAR Urine pH 7.0 (5.0-8.0) Ur Specific [place] 1.015 (1.001-1.035) Urine Protein NEGATIVE (NEGATIVE) mg/dL Urine Glucose (UA) NEGATIVE (NEGATIVE) mg/dL Urine Ketones NEGATIVE (NEGATIVE) mg/dL Urine Occult Blood MODERATE H (NEGATIVE) Urine Nitrite NEGATIVE (NEGATIVE) Urine Bilirubin NEGATIVE (NEGATIVE) Urine Urobilinogen 0.2 (<2.0) EU/dL Ur Leukocyte Esterase NEGATIVE (NEGATIVE) Urine RBC 0-5 (0-2/HPF) Urine WBC 0-3 (0-5/HPF) Ur Epithelial Cells FEW (NONE-FEW) Amorphous Sediment LIGHT (NEGATIVE) Urine Bacteria FEW (NEGATIVE) Urine Mucus LIGHT (NONE-MOD) Urine HCG, Qual NEGATIVE (NEGATIVE) Urine Opiates Screen NEGATIVE (NEGATIVE) Ur Oxycodone Screen NEGATIVE (NEGATIVE) Urine Methadone Screen NEGATIVE (NEGATIVE) Ur Barbiturates Screen NEGATIVE (NEGATIVE) Ur Phencyclidine Scrn NEGATIVE (NEGATIVE) Ur Amphetamine Screen NEGATIVE (NEGATIVE) U Methamphetamines Scrn NEGATIVE (NEGATIVE) U Benzodiazepines Scrn NEGATIVE (NEGATIVE) U Cocaine Metab Screen NEGATIVE (NEGATIVE) U Marijuana (THC) Screen NEGATIVE (NEGATIVE) 02/08/19 02/08/19 Range/Units 00:23 00:23 WBC 5.99 (4.0-11.0) K/uL RBC 4.53 (4.30-5.90) M/uL Hgb 14.2 (12.0-16.0) g/dL Hct 41.9 (36.0-46.0) % MCV 92.5 (80.0-98.0) fL MCH 31.3 (27.0-32.0) pg MCHC 33.9 (31.0-37.0) g/dL RDW Std Deviation 42.0 (28.0-62.0) fl RDW Coeff of Shakira 13 (11.0-15.0) % Plt Count 331 (150-400) K/uL MPV 9.70 (7.40-12.00) fL Neut % (Auto) 48.3 (48.0-80.0) % Lymph % (Auto) 39.7 (16.0-40.0) % Tyrrell % (Auto) 8.7 (0.0-15.0) % Eos % (Auto) 2.3 (0.0-7.0) % Baso % (Auto) 1.0 (0.0-1.5) % Neut # (Auto) 2.9 (1.4-5.7) K/uL Lymph # (Auto) 2.4 (0.6-2.4) K/uL Tyrrell # (Auto) 0.5 (0.0-0.8) K/uL Eos # (Auto) 0.1 (0.0-0.7) K/uL Baso # (Auto) 0.1 (0.0-0.1) K/uL Nucleated RBC % 0.0 /100WBC Nucleated RBCs # 0 K/uL Sodium 141 (136-145) mmol/L Potassium 3.6 (3.5-5.1) mmol/L Chloride 103 (98-107) mmol/L Carbon Dioxide 28.7 (21.0-32.0) mmol/L BUN 14 (7.0-18.0) mg/dL Creatinine 0.9 (0.6-1.0) mg/dL Est Cr Clr Drug Dosing 96.15 mL/min Estimated GFR (MDRD) > 60.0 ml/min Glucose 104 (74-106) mg/dL Calcium 9.2 (8.5-10.1) mg/dL Magnesium 1.9 (1.8-2.4) mg/dL Total Bilirubin 0.4 (0.2-1.0) mg/dL AST 16 (15-37) IU/L ALT 30 (14-63) IU/L Alkaline Phosphatase 88 (46-116) U/L Troponin I < 0.050 (0.000-0.056) ng/mL Total Protein 7.3 (6.4-8.2) g/dL Albumin 3.9 (3.4-5.0) g/dL Globulin 3.4 (2.6-4.0) g/dL Albumin/Globulin Ratio 1.1 (0.9-1.6) Urine Color Urine Appearance Urine pH (5.0-8.0) Ur Specific Estero (1.001-1.035) Urine Protein (NEGATIVE) mg/dL Urine Glucose (UA) (NEGATIVE) mg/dL Urine Ketones (NEGATIVE) mg/dL Urine Occult Blood (NEGATIVE) Urine Nitrite (NEGATIVE) Urine Bilirubin (NEGATIVE) Urine Urobilinogen (<2.0) EU/dL Ur Leukocyte Esterase (NEGATIVE) Urine RBC (0-2/HPF) Urine WBC (0-5/HPF) Ur Epithelial Cells (NONE-FEW) Amorphous Sediment (NEGATIVE) Urine Bacteria (NEGATIVE) Urine Mucus (NONE-MOD) Urine HCG, Qual (NEGATIVE) Urine Opiates Screen (NEGATIVE) Ur Oxycodone Screen (NEGATIVE) Urine Methadone Screen (NEGATIVE) Ur Barbiturates Screen (NEGATIVE) Ur Phencyclidine Scrn (NEGATIVE) Ur Amphetamine Screen (NEGATIVE) U Methamphetamines Scrn (NEGATIVE) U Benzodiazepines Scrn (NEGATIVE) U Cocaine Metab Screen (NEGATIVE) U Marijuana (THC) Screen (NEGATIVE) Departure - Departure Time of Disposition: 01:08 Disposition: Home, Self-Care 01 Condition: Good Clinical Impression: Dizziness Drug reaction Qualifiers: Encounter type: initial encounter Qualified Code(s): T50.905A - Adverse effect of unspecified drugs, medicaments and biological substances, initial encounter - Discharge Information Referrals: PCP,None [Primary Care Provider] - Forms: ED Department Discharge Additional Instructions: The following information is given to patients seen in the emergency department who are being discharged to home. This information is to outline your options for follow-up care. We provide all patients seen in our emergency department with a follow-up referral. The need for follow-up, as well as the timing and circumstances, are variable depending upon the specifics of your emergency department visit. If you don't have a primary care physician on staff, we will provide you with a referral. We always advise you to contact your personal physician following an emergency department visit to inform them of the circumstance of the visit and for follow-up with them and/or the need for any referrals to a consulting specialist. The emergency department will also refer you to a specialist when appropriate. This referral assures that you have the opportunity for followup care with a specialist. All of these measure are taken in an effort to provide you with optimal care, which includes your followup. Under all circumstances we always encourage you to contact your private physician who remains a resource for coordinating your care. When calling for followup care, please make the office aware that this follow-up is from your recent emergency room visit. If for any reason you are refused follow-up, please contact the [facility] emergency department at and ask to speak to the emergency department charge nurse. [facility] Primary care- Internal Medicine and Family [place] [id number] [place] [address] Please hold your Depakote dose this evening and discuss your symptoms with respect to this medication with your provider during your appointment later today. Use Zofran as you have been prescribed from [facility] for nausea and any vomiting and return to ER as needed and as discussed. You may also connect with one of our clinic providers for further care and reevaluation. - My Orders Last 24 Hours: My Active Orders 02/07/19 23:34 EKG Documentation Completion [RC] STAT Orthostatic Vital Signs [RC] ASDIRECTED - Assessment/Plan Last 24 Hours: My Active Orders 02/07/19 23:34 EKG Documentation Completion [RC] STAT Orthostatic Vital Signs [RC] ASDIRECTED
[2019-02-08 01:04] LABS: CHLORIDE,CL 103 mmol/L (98-107); SODIUM,NA 141 mmol/L (136-145)
[2019-02-08] MEDS ORDERED: Ondansetron 4 MG Tab.DIS PO ONE (01:09)
[2019-02-08 01:23] VITALS: BP 108/77
== END 2019-02-08 01:23 | disposition home or self-care (01) ==
LOC: MW.ED 23:18
DX: O99.89 Other specified diseases and conditions complicating pregnancy, childbirth and the puerperium (principal); R42 Dizziness and giddiness; R11.0 Nausea; T42.6X5A Adverse effect of other antiepileptic and sedative-hypnotic drugs, initial encounter; O99.342 Other mental disorders complicating pregnancy, second trimester; F31.9 Bipolar disorder, unspecified; O99.332 Smoking (tobacco) complicating pregnancy, second trimester; F17.210 Nicotine dependence, cigarettes, uncomplicated; Z79.899 Other long term (current) drug therapy; Z3A.33 33 weeks gestation of pregnancy
CPT/HCPCS: 36415; 80053; 80305; 81001; 81025; 83735; 84484; 85025; 93005; 99284; A9270; 99283

== ENCOUNTER 2019-02-27 16:33 | Emergency (ER) | payer BC ==
[2019-02-27] MEDS ORDERED: Dicyclomine 10 MG Cap PO ONE (16:58)
[2019-02-27] MEDS ORDERED: Ondansetron 4 MG Tab.DIS PO ONE (16:58)
--- NOTE | 2019-02-27 17:04 | EDM.PDOC ---
ED HPI GENERAL MEDICAL PROBLEM - General Chief Complaint: Gastrointestinal Problem Stated Complaint: NAUSEA AND STOMACH PAIN Time Seen by Provider: 02/27/19 16:47 - History of Present Illness INITIAL COMMENTS - FREE TEXT/NARRATIVE: HISTORY AND PHYSICAL: History of present illness: The patient is a 23-year-old female with a history of depression and IV drug abuse who has not used methamphetamine for the last 2 months and presents with a 2 week history of crampy abdominal pain mostly on the right side associated with 3 episodes of loose diarrhea every day for the last 2 weeks and episodic vomiting. She says she only vomited intermittently and she is able to tolerate fluids and eat otherwise and has not had any fevers or chills. She has no urinary complaints and is on the Depoprovera shot and denies she says that she does not have any history of food intolerance or ulcer disease and has never had a GI workup. When she presented to triage and also on my interview of her she's concerned about hepatitis C is the cause of her symptoms. She says she is not drinking excessive amounts of caffeine and she has had no cough or upper respiratory symptoms and no flank pain. She does not have black or bloody stools says the stool is just loose and watery but it is not copious. Review of systems: As per history of present illness and below otherwise all systems reviewed and negative. Past medical history: As per history of present illness and as reviewed below otherwise noncontributory. Surgical history: As per history of present illness and as reviewed below otherwise noncontributory. Social history: No reported history of drug or alcohol abuse. Family history: As per history of present illness and as reviewed below otherwise noncontributory. Physical exam: General: Well-developed well-nourished female who looks a little anxious on my evaluation but is cooperative and interactive and vital signs are noted by me. HEENT: Atraumatic, normocephalic, pupils reactive, negative for conjunctival pallor or scleral icterus, mucous membranes moist, throat clear, neck supple, nontender, trachea midline. Lungs: Clear to auscultation, breath sounds equal bilaterally, chest nontender. Heart: S1S2, regula rate and rhythm no overt murmurs Abdomen: Soft, nondistended, no sounds are normoactive. There is some mild tenderness on palpation in the upper abdomen but there is no rebound or guarding and no gross localization or gross tenderness on my evaluation. Negative for masses or hepatosplenomegaly. Negative for costovertebral tenderness. Pelvis: Stable nontender. Genitourinary: Deferred. Rectal: Deferred. Extremities: Atraumatic, negative for cords or calf pain. Neurovascular unremarkable. Neuro: Awake, alert, oriented. Cranial nerves II through XII unremarkable. Cerebellum unremarkable. Motor and sensory unremarkable throughout. Exam nonfocal. Diagnostics: CBC CMP amylase lipase UA UDS hepatitis C antibody hepatitis panel I asked the patient to save any stool that she may produce for testing as this may give us more information Therapeutics: Annem[employer] Morton Patient is aware that the hepatitis panel is a send out and she has not produced any stool here for study. With her labs being all within normal limits I will not perform a CT scan or other imaging at this time as her symptoms are more chronic ongoing for 2 weeks and her physical findings are not overly impressive nor does she have any fevers or persistent vomiting. Her hepatitis C antibody test is currently pending and requires 30 more minutes and the patient is willing to wait for that test results. She would like referral to our clinic for further evaluation regardless of this test results. Patient's hepatitis C antibody is negative and she is aware Impression: Abdominal pain with diarrhea subacute, episodic vomiting stable; history of drug abuse improved Definitive disposition and diagnosis as appropriate pending reevaluation and review of above. 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 She states, one doctor would say yes et one would say no. She underwent testing to confirm or R?O for years. - Currently self medicating. 09/11/15- denies SI at this time but states hx of SI and cutting. Endocrine/Metabolic History: Reports: None Hematologic History: Reports: None Immunologic History: Reports: None Oncologic (Cancer) History: Reports: None Dermatologic History: Reports: None - Infectious Disease History Infectious Disease History: Reports: Chicken Pox - Past Surgical History Head Surgeries/Procedures: Reports: None HEENT Surgical History: Reports: Tonsillectomy Social & Family History - Family History Family Medical History: Noncontributory Cardiac: Reports: CT - Tobacco Use Smoking Status *Q: Current Every Day Smoker Years of Tobacco use: 3 Packs/Tins Daily: 0.5 - Caffeine Use Caffeine Use: Reports: Other Other Caffeine Use: dietary suppliments - Recreational Drug Use Recreational Drug Use: Yes Drug Use in Last 12 Months: Yes Recreational Drug Type: Reports: Methamphetamine ED ROS GENERAL - Review of Systems Review Of Systems: ROS reveals no pertinent complaints other than HPI. ED EXAM, GENERAL - Physical Exam Exam: See Below (See dictation) Course - Vital Signs Last Recorded V/S: Last Vital Signs Temp 35.9 C 02/27/19 16:44 Pulse 63 02/27/19 16:44 Resp 18 02/27/19 16:44 BP 122/76 02/27/19 16:44 Pulse Ox 98 02/27/19 16:44 - Orders/Labs/Meds Orders: Active Orders 24 hr Category Date Time Status Communication Order [RC] STAT Care 02/27/19 16:57 Active HEPATITIS PANEL (4) [REF] Stat Lab 02/27/19 17:06 Received Labs: Laboratory Tests 02/27/19 02/27/19 02/27/19 Range/Units 17:00 17:00 17:06 WBC 6.78 (4.0-11.0) K/uL RBC 4.50 (4.30-5.90) M/uL Hgb 14.2 (12.0-16.0) g/dL Hct 41.0 (36.0-46.0) % MCV 91.1 (80.0-98.0) fL MCH 31.6 (27.0-32.0) pg MCHC 34.6 (31.0-37.0) g/dL RDW Std Deviation 41.2 (28.0-62.0) fl RDW Coeff of Shakira 12 (11.0-15.0) % Plt Count 293 (150-400) K/uL MPV 10.00 (7.40-12.00) fL Neut % (Auto) 55.5 (48.0-80.0) % Lymph % (Auto) 32.9 (16.0-40.0) % Mclennan % (Auto) 6.3 (0.0-15.0) % Eos % (Auto) 4.6 (0.0-7.0) % Baso % (Auto) 0.7 (0.0-1.5) % Neut # (Auto) 3.8 (1.4-5.7) K/uL Lymph # (Auto) 2.2 (0.6-2.4) K/uL Mclennan # (Auto) 0.4 (0.0-0.8) K/uL Eos # (Auto) 0.3 (0.0-0.7) K/uL Baso # (Auto) 0.1 (0.0-0.1) K/uL Nucleated RBC % 0.0 /100WBC Nucleated RBCs # 0 K/uL Sodium (136-145) mmol/L Potassium (3.5-5.1) mmol/L Chloride (98-107) mmol/L Carbon Dioxide (21.0-32.0) mmol/L BUN (7.0-18.0) mg/dL Creatinine (0.6-1.0) mg/dL Est Cr Clr Drug Dosing Estimated GFR (MDRD) ml/min Glucose (74-106) mg/dL Calcium (8.5-10.1) mg/dL Total Bilirubin (0.2-1.0) mg/dL AST (15-37) IU/L ALT (14-63) IU/L Alkaline Phosphatase (46-116) U/L Total Protein (6.4-8.2) g/dL Albumin (3.4-5.0) g/dL Globulin (2.6-4.0) g/dL Albumin/Globulin Ratio (0.9-1.6) Amylase (25-115) U/L Lipase (73-393) U/L Urine Color YELLOW Urine Appearance SLT CLOUDY Urine pH 5.5 (5.0-8.0) Ur Specific [place] 1.025 (1.001-1.035) Urine Protein NEGATIVE (NEGATIVE) mg/dL Urine Glucose (UA) NEGATIVE (NEGATIVE) mg/dL Urine Ketones NEGATIVE (NEGATIVE) mg/dL Urine Occult Blood TRACE-INTACT H (NEGATIVE) Urine Nitrite NEGATIVE (NEGATIVE) Urine Bilirubin NEGATIVE (NEGATIVE) Urine Urobilinogen 0.2 (<2.0) EU/dL Ur Leukocyte Esterase NEGATIVE (NEGATIVE) Urine RBC NONE SEEN (0-2/HPF) Urine WBC NONE SEEN (0-5/HPF) Ur Epithelial Cells RARE (NONE-FEW) Urine Bacteria RARE (NEGATIVE) Urine Opiates Screen NEGATIVE (NEGATIVE) Ur Oxycodone Screen NEGATIVE (NEGATIVE) Urine Methadone Screen NEGATIVE (NEGATIVE) Ur Barbiturates Screen NEGATIVE (NEGATIVE) Ur Phencyclidine Scrn NEGATIVE (NEGATIVE) Ur Amphetamine Screen NEGATIVE (NEGATIVE) U Methamphetamines Scrn NEGATIVE (NEGATIVE) U Benzodiazepines Scrn NEGATIVE (NEGATIVE) U Cocaine Metab Screen NEGATIVE (NEGATIVE) U Marijuana (THC) Screen NEGATIVE (NEGATIVE) Hep C Ab Index (KRISTAN) (<0.8) INDEX 02/27/19 Range/Units 17:06 WBC (4.0-11.0) K/uL RBC (4.30-5.90) M/uL Hgb (12.0-16.0) g/dL Hct (36.0-46.0) % MCV (80.0-98.0) fL MCH (27.0-32.0) pg MCHC (31.0-37.0) g/dL RDW Std Deviation (28.0-62.0) fl RDW Coeff of Shakira (11.0-15.0) % Plt Count (150-400) K/uL MPV (7.40-12.00) fL Neut % (Auto) (48.0-80.0) % Lymph % (Auto) (16.0-40.0) % Mclennan % (Auto) (0.0-15.0) % Eos % (Auto) (0.0-7.0) % Baso % (Auto) (0.0-1.5) % Neut # (Auto) (1.4-5.7) K/uL Lymph # (Auto) (0.6-2.4) K/uL Mclennan # (Auto) (0.0-0.8) K/uL Eos # (Auto) (0.0-0.7) K/uL Baso # (Auto) (0.0-0.1) K/uL Nucleated RBC % /100WBC Nucleated RBCs # K/uL Sodium 140 (136-145) mmol/L Potassium 3.9 (3.5-5.1) mmol/L Chloride 106 (98-107) mmol/L Carbon Dioxide 25.0 (21.0-32.0) mmol/L BUN 16 (7.0-18.0) mg/dL Creatinine 0.9 (0.6-1.0) mg/dL Est Cr Clr Drug Dosing TNP Estimated GFR (MDRD) > 60.0 ml/min Glucose 88 (74-106) mg/dL Calcium 9.5 (8.5-10.1) mg/dL Total Bilirubin 0.4 (0.2-1.0) mg/dL AST 18 (15-37) IU/L ALT 28 (14-63) IU/L Alkaline Phosphatase 82 (46-116) U/L Total Protein 7.4 (6.4-8.2) g/dL Albumin 4.1 (3.4-5.0) g/dL Globulin 3.3 (2.6-4.0) g/dL Albumin/Globulin Ratio 1.2 (0.9-1.6) Amylase 64 (25-115) U/L Lipase 229 (73-393) U/L Urine Color Urine Appearance Urine pH (5.0-8.0) Ur Specific [place] (1.001-1.035) Urine Protein (NEGATIVE) mg/dL Urine Glucose (UA) (NEGATIVE) mg/dL Urine Ketones (NEGATIVE) mg/dL Urine Occult Blood (NEGATIVE) Urine Nitrite (NEGATIVE) Urine Bilirubin (NEGATIVE) Urine Urobilinogen (<2.0) EU/dL Ur Leukocyte Esterase (NEGATIVE) Urine RBC (0-2/HPF) Urine WBC (0-5/HPF) Ur Epithelial Cells (NONE-FEW) Urine Bacteria (NEGATIVE) Urine Opiates Screen (NEGATIVE) Ur Oxycodone Screen (NEGATIVE) Urine Methadone Screen (NEGATIVE) Ur Barbiturates Screen (NEGATIVE) Ur Phencyclidine Scrn (NEGATIVE) Ur Amphetamine Screen (NEGATIVE) U Methamphetamines Scrn (NEGATIVE) U Benzodiazepines Scrn (NEGATIVE) U Cocaine Metab Screen (NEGATIVE) U Marijuana (THC) Screen (NEGATIVE) Hep C Ab Index (KRISTAN) < 0.02 (<0.8) INDEX Meds: Medications Discontinued Medications Generic Name Dose Route Start Last Admin Trade Name Freq PRN Reason Stop Dose Admin Dicyclomine HCl 20 mg 02/27/19 16:58 02/27/19 17:06 Bentyl PO 02/27/19 16:59 20 mg ONETIME ONE Administration Ondansetron HCl 4 mg 02/27/19 16:58 02/27/19 17:06 Zofran Odt PO 02/27/19 16:59 4 mg ONETIME ONE Administration Departure - Departure Time of Disposition: 18:55 Disposition: Home, Self-Care 01 Condition: Good Clinical Impression: Abdominal pain, Diarrhea - Discharge Information Referrals: PCP,None [Primary Care Provider] - Forms: ED Department Discharge Additional Instructions: The following information is given to patients seen in the emergency department who are being discharged to home. This information is to outline your options for follow-up care. We provide all patients seen in our emergency department with a follow-up referral. The need for follow-up, as well as the timing and circumstances, are variable depending upon the specifics of your emergency department visit. If you don't have a primary care physician on staff, we will provide you with a referral. We always advise you to contact your personal physician following an emergency department visit to inform them of the circumstance of the visit and for follow-up with them and/or the need for any referrals to a consulting specialist. The emergency department will also refer you to a specialist when appropriate. This referral assures that you have the opportunity for followup care with a specialist. All of these measure are taken in an effort to provide you with optimal care, which includes your followup. Under all circumstances we always encourage you to contact your private physician who remains a resource for coordinating your care. When calling for followup care, please make the office aware that this follow-up is from your recent emergency room visit. If for any reason you are refused follow-up, please contact the [facility] emergency department at and ask to speak to the emergency department charge nurse. BREONNA [facility] Primary care- Internal Medicine and Family [place] [id number] [place] [id number] Push Hydration and continue to monitor your symptoms and call the clinic in the morning and schedule a follow-up appointment for further care and evaluation for other causes of these 2+ weeks of symptoms. Return to ER as needed and as discussed - My Orders Last 24 Hours: My Active Orders 02/27/19 16:57 Communication Order [RC] STAT 02/27/19 17:06 HEPATITIS PANEL (4) [REF] Stat - Assessment/Plan Last 24 Hours: My Active Orders 02/27/19 16:57 Communication Order [RC] STAT 02/27/19 17:06 HEPATITIS PANEL (4) [REF] Stat
[2019-02-27 17:46] LABS: CHLORIDE,CL 106 mmol/L (98-107); SODIUM,NA 140 mmol/L (136-145)
[2019-02-27 19:12] VITALS: BP 101/65
== END 2019-02-27 19:12 | disposition home or self-care (01) ==
LOC: MW.ED 16:33
DX: O99.89 Other specified diseases and conditions complicating pregnancy, childbirth and the puerperium (principal); R10.9 Unspecified abdominal pain; R19.7 Diarrhea, unspecified; F17.210 Nicotine dependence, cigarettes, uncomplicated; F41.9 Anxiety disorder, unspecified; F31.9 Bipolar disorder, unspecified; Z79.899 Other long term (current) drug therapy; Z3A.22 22 weeks gestation of pregnancy
CPT/HCPCS: 80053; 80074; 80305; 81001; 82150; 83690; 85025; 86803; 99283; A9270; 36415

== ENCOUNTER 2020-03-11 18:48 | Emergency (ER) | payer BC ==
--- NOTE | 2020-03-11 19:27 | EDM.PDOC ---
ED HPI GENERAL MEDICAL PROBLEM - General Chief Complaint: General Stated Complaint: TINGLING IN HANDS AND LIPS Time Seen by Provider: 03/11/20 19:13 Source of Information: Reports: Patient History Limitations: Reports: No Limitations - History of Present Illness INITIAL COMMENTS - FREE TEXT/NARRATIVE: 23-year-old female with history of bipolar disorder presents with complaints of tingling in her hands, diffuse body cramping, and 15 episodes of nonbloody vomitus after drinking 2 drinks of vodka and smoking marijuana yesterday at a house green party with 6 of her girlfriends, there were no men at the green party. She claims she might have blacked out. She denies fever, chills, diarrhea, chest pain, shortness of breath, abdominal pain, headache. ROS: A 10-point review of systems, other than pertinent positives and negatives as stated per HPI, is otherwise negative PHYSICAL EXAM General: AOx4, GCS = 15, No distress HEENT: dry mucous membrane, NC/AT, no otorrhea, rhinorrhea, orellana sign, raccoon sign. Neck: supple, no meningismus, no Kernig or Brudzinski, no C-spine tenderness Cardiac: S1S2 RRR Respiratory: CTAB, no crackles or rales, no wheezing Abdomen: Soft, nontender, no rebound or guarding, nondistended, no pulsatile mass. Back: trace CVAT bilateral Musculoskeletal: NVI distally, no deformity Neuro: No focal deficits, CN 2 - 12 WNL. No nystagmus, tremors. Right Foot Pain Score (Numeric/FACES): 3 - Related Data Allergies Allergy/AdvReac Type Severity Reaction Status Date / Time No Known Allergies Allergy Verified 03/11/20 19:34 Home Meds: Home Meds Citalopram Hydrobromide [Celexa] 40 mg PO DAILY 03/24/18 [History] Lurasidone HCl [Latuda] 80 mg PO DAILY 01/05/19 [History] Past Medical History - Past Health History Medical/Surgical History: Denies Medical/Surgical History HEENT History: Reports: None Cardiovascular History: Reports: None Respiratory History: Reports: None Gastrointestinal History: Reports: None Genitourinary History: Reports: None 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 She states, one doctor would say yes et one would say no. She underwent testing to confirm or R?O for years. - Currently self medicating. 09/11/15- denies SI at this time but states hx of SI and cutting. Endocrine/Metabolic History: Reports: None Hematologic History: Reports: None Immunologic History: Reports: None Oncologic (Cancer) History: Reports: None Dermatologic History: Reports: None - Infectious Disease History Infectious Disease History: Reports: Chicken Pox - Past Surgical History Head Surgeries/Procedures: Reports: None HEENT Surgical History: Reports: Oral Surgery, Tonsillectomy Female Surgical History: Reports: Section Social & Family History - Family History Family Medical History: Noncontributory Cardiac: Reports: NM - Tobacco Use Smoking Status *Q: Never Smoker Second Hand Smoke Exposure: No - Caffeine Use Caffeine Use: Reports: Soda Other Caffeine Use: dietary suppliments - Recreational Drug Use Recreational Drug Use: No ED ROS GENERAL - Review of Systems Review Of Systems: Comprehensive ROS is negative, except as noted in HPI. ED EXAM, GENERAL - Physical Exam Exam: See Below (see dictation) Course - Orders/Labs/Meds Labs: Laboratory Tests 03/11/20 03/11/20 03/11/20 Range/Units 19:30 19:30 19:30 WBC (4.0-11.0) K/uL RBC (4.30-5.90) M/uL Hgb (12.0-16.0) g/dL Hct (36.0-46.0) % MCV (80.0-98.0) fL MCH (27.0-32.0) pg MCHC (31.0-37.0) g/dL RDW Std Deviation (28.0-62.0) fl RDW Coeff of Shakira (11.0-15.0) % Plt Count (150-400) K/uL MPV (7.40-12.00) fL Neut % (Auto) (48.0-80.0) % Lymph % (Auto) (16.0-40.0) % [place] % (Auto) (0.0-15.0) % Eos % (Auto) (0.0-7.0) % Baso % (Auto) (0.0-1.5) % Neut # (Auto) (1.4-5.7) K/uL Lymph # (Auto) (0.6-2.4) K/uL [place] # (Auto) (0.0-0.8) K/uL Eos # (Auto) (0.0-0.7) K/uL Baso # (Auto) (0.0-0.1) K/uL Nucleated RBC % /100WBC Nucleated RBCs # K/uL Sodium (136-145) mmol/L Potassium (3.5-5.1) mmol/L Chloride (98-107) mmol/L Carbon Dioxide (21.0-32.0) mmol/L BUN (7.0-18.0) mg/dL Creatinine (0.6-1.0) mg/dL Est Cr Clr Drug Dosing mL/min Estimated GFR (MDRD) ml/min Glucose (74-106) mg/dL Calcium (8.5-10.1) mg/dL Phosphorus (2.6-4.7) mg/dL Magnesium (1.8-2.4) mg/dL Total Bilirubin (0.2-1.0) mg/dL AST (15-37) IU/L ALT (14-63) IU/L Alkaline Phosphatase (46-116) U/L Total Protein (6.4-8.2) g/dL Albumin (3.4-5.0) g/dL Globulin (2.6-4.0) g/dL Albumin/Globulin Ratio (0.9-1.6) TSH 3rd Generation (0.36-3.74) uIU/mL Urine Color YELLOW Urine Appearance CLEAR Urine pH 8.5 H (5.0-8.0) Ur Specific [place] 1.015 (1.001-1.035) Urine Protein NEGATIVE (NEGATIVE) mg/dL Urine Glucose (UA) NEGATIVE (NEGATIVE) mg/dL Urine Ketones NEGATIVE (NEGATIVE) mg/dL Urine Occult Blood NEGATIVE (NEGATIVE) Urine Nitrite NEGATIVE (NEGATIVE) Urine Bilirubin NEGATIVE (NEGATIVE) Urine Urobilinogen 0.2 (<2.0) EU/dL Ur Leukocyte Esterase NEGATIVE (NEGATIVE) Urine HCG, Qual NEGATIVE (NEGATIVE) Salicylates (0-20) mg/dL Urine Opiates Screen NEGATIVE (NEGATIVE) Ur Oxycodone Screen NEGATIVE (NEGATIVE) Urine Methadone Screen NEGATIVE (NEGATIVE) Acetaminophen ug/mL Ur Barbiturates Screen NEGATIVE (NEGATIVE) Ur Phencyclidine Scrn NEGATIVE (NEGATIVE) Ur Amphetamine Screen NEGATIVE (NEGATIVE) U Methamphetamines Scrn NEGATIVE (NEGATIVE) U Benzodiazepines Scrn NEGATIVE (NEGATIVE) U Cocaine Metab Screen NEGATIVE (NEGATIVE) U Marijuana (THC) Screen POSITIVE (NEGATIVE) Ethyl Alcohol mg/dL 03/11/20 03/11/20 Range/Units 19:51 19:51 WBC 10.39 (4.0-11.0) K/uL RBC 4.58 (4.30-5.90) M/uL Hgb 14.2 (12.0-16.0) g/dL Hct 41.7 (36.0-46.0) % MCV 91.0 (80.0-98.0) fL MCH 31.0 (27.0-32.0) pg MCHC 34.1 (31.0-37.0) g/dL RDW Std Deviation 42.7 (28.0-62.0) fl RDW Coeff of Shakira 13 (11.0-15.0) % Plt Count 328 (150-400) K/uL MPV 9.70 (7.40-12.00) fL Neut % (Auto) 68.6 (48.0-80.0) % Lymph % (Auto) 23.8 (16.0-40.0) % [place] % (Auto) 7.2 (0.0-15.0) % Eos % (Auto) 0.2 (0.0-7.0) % Baso % (Auto) 0.2 (0.0-1.5) % Neut # (Auto) 7.1 H (1.4-5.7) K/uL Lymph # (Auto) 2.5 H (0.6-2.4) K/uL [place] # (Auto) 0.8 (0.0-0.8) K/uL Eos # (Auto) 0.0 (0.0-0.7) K/uL Baso # (Auto) 0.0 (0.0-0.1) K/uL Nucleated RBC % 0.0 /100WBC Nucleated RBCs # 0 K/uL Sodium 141 (136-145) mmol/L Potassium 3.5 (3.5-5.1) mmol/L Chloride 103 (98-107) mmol/L Carbon Dioxide 21.6 (21.0-32.0) mmol/L BUN 13 (7.0-18.0) mg/dL Creatinine 0.8 (0.6-1.0) mg/dL Est Cr Clr Drug Dosing 103.26 mL/min Estimated GFR (MDRD) > 60.0 ml/min Glucose 85 (74-106) mg/dL Calcium 9.8 (8.5-10.1) mg/dL Phosphorus 2.4 L (2.6-4.7) mg/dL Magnesium 2.0 (1.8-2.4) mg/dL Total Bilirubin 0.7 (0.2-1.0) mg/dL AST 24 (15-37) IU/L ALT 33 (14-63) IU/L Alkaline Phosphatase 105 (46-116) U/L Total Protein 7.9 (6.4-8.2) g/dL Albumin 4.5 (3.4-5.0) g/dL Globulin 3.4 (2.6-4.0) g/dL Albumin/Globulin Ratio 1.3 (0.9-1.6) TSH 3rd Generation 0.83 (0.36-3.74) uIU/mL Urine Color Urine Appearance Urine pH (5.0-8.0) Ur Specific [place] (1.001-1.035) Urine Protein (NEGATIVE) mg/dL Urine Glucose (UA) (NEGATIVE) mg/dL Urine Ketones (NEGATIVE) mg/dL Urine Occult Blood (NEGATIVE) Urine Nitrite (NEGATIVE) Urine Bilirubin (NEGATIVE) Urine Urobilinogen (<2.0) EU/dL Ur Leukocyte Esterase (NEGATIVE) Urine HCG, Qual (NEGATIVE) Salicylates 3.0 (0-20) mg/dL Urine Opiates Screen (NEGATIVE) Ur Oxycodone Screen (NEGATIVE) Urine Methadone Screen (NEGATIVE) Acetaminophen <2.0 ug/mL Ur Barbiturates Screen (NEGATIVE) Ur Phencyclidine Scrn (NEGATIVE) Ur Amphetamine Screen (NEGATIVE) U Methamphetamines Scrn (NEGATIVE) U Benzodiazepines Scrn (NEGATIVE) U Cocaine Metab Screen (NEGATIVE) U Marijuana (THC) Screen (NEGATIVE) Ethyl Alcohol < 3.0 mg/dL Meds: Medications Discontinued Medications Generic Name Dose Route Start Last Admin Trade Name Ni PRN Reason Stop Dose Admin Lactated Ringer's 1,000 mls @ 999 mls/hr 03/11/20 19:28 03/11/20 19:54 Ringers, Lactated IV 03/11/20 20:28 999 mls/hr .BOLUS ONE Administration Ondansetron HCl 4 mg 03/11/20 19:30 03/11/20 19:54 Zofran IVPUSH 03/11/20 19:31 4 mg ONETIME ONE Administration - Re-Assessments/Exams Free Text/Narrative Re-Assessment/Exam: 03/11/202112 After IVF and ativan 0.5mg IV, she feels better and stable for discharge. I performed a repeat examination and the patient has not demonstrated any new abnormal findings. Patient exhibits normal vital signs and has exhibited a normal gait. I advised the patient to return to the ER for reevaluation if symptoms worsened, and to follow up with their PCP within 2-3 days. MEDICAL DECISION MAKING: I reviewed the patients past medical records, lab and radiographic findings. I discussed the case with the patient. My differential diagnosis included: Electrolyte abnormality, hypoglycemia, drug intoxication, alcohol intoxication. Patient's blood work today is reassuring for discharge. Her electrolytes are unremarkable, her urine drug screen was positive for marijuana which was consistent with her history. She does not have a UTI. Her alcohol level was undetectable, given her slight tremor on my examination, clinically she has signs and symptoms of alcohol withdrawal, she was given IV Ativan with improvement of her symptoms. She denies any headache or neck pain despite her history of blacking out, I do not find the need for CT scan of her head. My physical exam demonstrated no signs of trauma, she had no raccoon sign or orellana sign or otorrhea or rhinorrhea. Her blood glucose was normal, she was not hypoglycemic. Departure - Departure Time of Disposition: 21:17 Disposition: Home, Self-Care 01 Condition: Good Clinical Impression: Alcohol withdrawal - Discharge Information *PRESCRIPTION DRUG MONITORING PROGRAM REVIEWED*: Not Applicable *COPY OF PRESCRIPTION DRUG MONITORING REPORT IN PATIENT JESSICA: Not Applicable Instructions: Alcohol Withdrawal Syndrome, Medical Screening Exam Referrals: PCP,None [Primary Care Provider] - Forms: ED Department Discharge Additional Instructions: The following information is given to patients seen in the emergency department who are being discharged to home. This information is to outline your options for follow-up care. We provide all patients seen in our emergency department with a follow-up referral. The need for follow-up, as well as the timing and circumstances, are variable depending upon the specifics of your emergency department visit. If you don't have a primary care physician on staff, we will provide you with a referral. We always advise you to contact your personal physician following an emergency department visit to inform them of the circumstance of the visit and for follow-up with them and/or the need for any referrals to a consulting specialist. The emergency department will also refer you to a specialist when appropriate. This referral assures that you have the opportunity for follow-up care with a specialist. All of these measure are taken in an effort to provide you with optimal care, which includes your follow-up. Under all circumstances we always encourage you to contact your private physician who remains a resource for coordinating your care. When calling for f ollow-up care, please make the office aware that this follow-up is from your recent emergency room visit. If for any reason you are refused follow-up, please contact the [facility] Emergency Department at and asked to speak to the emergency department charge nurse. If you do not have a primary care doctor, please follow up with the clinics below within 3-5 days. Gerry Garcia [facility] - Primary Care [address] [place] [address] [facility] [address] [place] [id number] Sepsis Event Note (ED) - Evaluation Sepsis Screening Result: No Definite Risk
[2020-03-11] MEDS ORDERED: Lactated Ringers 1,000 ML IV ONE (19:28)
[2020-03-11] MEDS ORDERED: Ondansetron 4 MG/2 ML SDV IVPUSH ONE (19:30)
[2020-03-11 20:32] LABS: ACETAMINOPHEN <2.0 ug/mL; BLOOD UREA NITROGEN,BUN 13 mg/dL (7.0-18.0); CARBON DIOXIDE,CO2 21.6 mmol/L (21.0-32.0); CHLORIDE,CL 103 mmol/L (98-107); GLUCOSE RANDOM 85 mg/dL (74-106); POTASSIUM,K 3.5 mmol/L (3.5-5.1); SODIUM,NA 141 mmol/L (136-145)
[2020-03-11] MEDS ORDERED: LORazepam 2 MG/ML SDV IVPUSH STA (21:08)
[2020-03-11 21:40] VITALS: BP 117/70; PULSE 70
== END 2020-03-11 21:40 | disposition home or self-care (01) ==
LOC: MW.ED 18:48
DX: F10.239 Alcohol dependence with withdrawal, unspecified (principal); F41.9 Anxiety disorder, unspecified; F31.9 Bipolar disorder, unspecified; R11.10 Vomiting, unspecified; Z79.899 Other long term (current) drug therapy
CPT/HCPCS: 36415; 80053; 80305; 80307; 81003; 81025; 83735; 84100; 84443; 85025; 96361; 96374; 96375; 99284; J2060; J2405; J7120; 99282

== ENCOUNTER 2020-11-03 19:29 | Emergency (ER) | payer BC ==
[2020-11-03 23:02] LABS: BLOOD UREA NITROGEN,BUN 11 mg/dL (7.0-18.0); CARBON DIOXIDE,CO2 23.1 mmol/L (21.0-32.0); CHLORIDE,CL 103 mmol/L (98-107); GLUCOSE RANDOM 72 mg/dL (74-106); POTASSIUM,K 3.6 mmol/L (3.5-5.1); SODIUM,NA 137 mmol/L (136-145)
--- NOTE | 2020-11-04 00:37 | US ---
INDICATION: Possible retained products of conception. Beta hCG 3500. COMPARISON: 10/29/2020 FINDINGS: Transvaginal ultrasound examination of the female pelvis was performed. There is a large amount of free fluid in the pelvis, prominently increased compared to the previous study. The uterus is anteverted with no evidence of mass. It measures 7.9 x 4.2 x 3.5 cm. The endometrial lining is normal in thickness at 6 mm, decreased compared to the previous study. The previously seen small fluid collection located within the uterine cavity is no longer present, consistent with passage of a gestational sac. There is no sign of any increased color Doppler flow to suggest retained products of conception. The right ovary cannot be identified. The right adnexal region is normal in appearance. The left ovary remains normal in appearance, measuring 2.9 x 2.1 x 2.6 centimeters. There is normal color and pulse doppler flow in the left ovary. IMPRESSION: Marked increased in free fluid in the pelvis, now prominent. Cannot exclude hemoperitoneum. No sign of any retained products of conception, with interval passage of the empty gestational sac. No sign of increased color Doppler flow in the normal appearing endometrium. Normal appearance of the left ovary. Right ovary cannot be identified. Dictated by Og Dunn MD @ Nov 04 2020 12:30AM Signed by Dr. Og Dunn @ Nov 04 2020 12:35AM
--- NOTE | 2020-11-04 01:43 | EDM.PDOC ---
ED HPI GENERAL MEDICAL PROBLEM - General Chief Complaint: Genitourinary Problem Stated Complaint: BLOOID IN URINE Time Seen by Provider: 11/03/20 21:46 - History of Present Illness INITIAL COMMENTS - FREE TEXT/NARRATIVE: CHIEF COMPLAINT(S): Pelvic pain HISTORY OF PRESENT ILLNESS: This is a 25-year-old woman with a miscarriage approximately 3 weeks ago who was given misoprostol who comes to the emergency department with a chief complaint of pelvic pain. The patient states that approximately 3 weeks ago she was approximately 7 weeks gestation and was told that she was having a miscarriage. She states that they gave her misoprostol approximately 1 week. She states that for the last 2 days she has been experiencing some blood in her urine and some pelvic pain which she describes as 10 out of 10 intermittently and sharp in her pelvic area. She states that there is a constant 3 out of 10 pain except for exacerbations. She states that she has not passed any clots, bleeding, or fetus. She denies any vaginal discharge, fever, dysuria. REVIEW OF SYSTEMS: Constitutional: Denies fever, chills. Eyes: Denies eye pain Ears, Nose, Mouth, & Throat: Denies earache Cardiovascular: Denies chest pain Respiratory: Denies shortness of breath Gastrointestinal: Denies Nausea, vomiting, diarrhea, hematochezia. Genitourinary: Positive for blood in the urine and pelvic pain. Denies dysuria, vaginal bleeding, vaginal discharge Skin:Denies a rash MSK: Denies joint pain Neurological: Denies blurred vision Psychiatric: Denies depression PAST MEDICAL HISTORY: As per history of present illness and as reviewed below otherwise noncontributory. SURGICAL HISTORY: As per history of present illness and as reviewed below otherwise noncontributory. LMP: Approximately 7 weeks ago SOCIAL HISTORY: As per history of present illness and as reviewed below otherwise noncontributory. FAMILY HISTORY: As per history of present illness and as reviewed below otherwise noncontributory. EXAMINATION OF ORGAN SYSTEMS/BODY AREAS: Constitutional: Blood pressure was 141/75, heart rate 93, respiratory rate 16 with an oxygen saturation of 1 her percent on room air. Temperature 36.5 General: Overall well-appearing woman who is in no acute distress Psychiatric: Appropriate mood and affect. Eyes: No scleral icterus or conjunctival erythema ENMT: Moist mucous membranes. No pharyngeal erythema Cardiovascular: Regular, rate, and rhythm. No gallops, murmurs, or rubs. Bilateral upper extremity pulses symmetric and intact. No peripheral edema. No JVD. Respiratory: Lungs clear to auscultation bilaterally. No wheezes, rales, or rhonchi. Gastrointestinal: Soft, non-tender, non-distended. Normoactive bowel sounds no rebound or guarding Genitourinary: Mild suprapubic tenderness to palpation. No CVA tenderness. Musculoskeletal: Normal range of motion. Skin: No lesions or abrasions. Neurological: Alert, GCS 15 MEDICAL DECISION MAKING AND COURSE IN THE ED WITH INTERPRETATION/REVIEW OF DIAGNOSTIC STUDIES: This is a 25-year-old woman with a reported miscarriage who is at approximately 7 weeks gestation who has not had progression of the miscarriage who comes to the emergency department with acute intermittent pelvic pain who has normal vital signs. At this time given her history will obtain laboratory analysis including quantitative hCG. Will obtain a transvaginal ultrasound to evaluate for retained products of conception. I did review the patient's prior record and at this time there was an ultrasound that was completed which did show a gestational sac within the uterus with some free fluid. Ectopic cannot be ruled out at that time as there was significant amount of free fluid in the pelvis. Laboratory: CBC reveals normocytic anemia with a hemoglobin of 9.5 and hematocrit of 28.3. This is decreased from prior however none recently. Last hemoglobin was drawn on 03/11/20002019 and was found to be 14.2. BMP is unremarkable. Quantitative hCG is 3459 which is decreased from prior at 7986 Urinalysis was a clean catch and was small for leukocyte esterase, [negative] for nitrites, and large for blood. Interpretation: Hematuria with bacteriuria The radiological images were viewed by myself along with reading the report from the radiologist. Transvaginal ultrasound did reveal increased amount of free fluid in the pelvis concerning for possible hemoperitoneum with the gestational sac that was seen on prior ultrasound not seen on this ultrasound. Given the ultrasound findings I did contact Dr. Finley who is covering for Dr. Carver and I did discuss the results with her. At this time she stated that the patient could follow-up at her scheduled appointment. Given the patient's vitals are normal this could be a normal finding after passage of the miscarriage. After my discussion with Dr. Finley I did discuss results with the patient. I discussed with her at this time the given that her vitals are normal and even though she does have a decreased hemoglobin there is no indication for admission or surgery at this time. I do agree with Dr. Finley at this time as the patient is vitally stable and given that the patient has had the finding of free fluid in the pelvis since her prior ultrasound it is unlikely to be a ruptured ectopic as I would expect the patient to be exhibiting further symptoms and vital sign abnormalities. I did give the patient strict return precautions. Patient was amenable to discharge and had no further questions DISPOSITION: The patient was discharged home in stable condition. The patient will follow up with obstetrics on her scheduled appointment in 2 days CONDITION: Fair PROCEDURES: None FINAL IMPRESSION(S)/DIAGNOSES: 1. Acute intermittent pelvic pain 2. Free fluid in the pelvis, likely normal finding post miscarriage Perry Moncada M.D. Abdomen Pain Score (Numeric/FACES): 5 - Related Data Allergies Allergy/AdvReac Type Severity Reaction Status Date / Time No Known Allergies Allergy Verified 11/03/20 20:02 Home Meds: Home Meds . [No Known Home Meds] 11/03/20 [History] Past Medical History - Past Health History Medical/Surgical History: Denies Medical/Surgical History HEENT History: Reports: None Cardiovascular History: Reports: None Respiratory History: Reports: None Gastrointestinal History: Reports: None Genitourinary History: Reports: None FLOOR SPECIALIST History: Reports: Other FLOOR SPECIALIST History: currently 25 wks Musculoskeletal History: Reports: Back Pain, Chronic Neurological History: Reports: None Psychiatric History: Reports: ADD, ADHD, Addiction, Anxiety, Bipolar, Depression, Suicide Attempt Other Psychiatric History: Never confirmed the Dx- was on stratera 2014 but once she was out of rehab she quit taking it. She states, one doctor would say yes et one would say no. She underwent testing to confirm or R?O for years. - Currently self medicating. 09/11/15- denies SI at this time but states hx of SI and cutting. Endocrine/Metabolic History: Reports: None Insulin Pump Model and Chocolate Finisher: None Hematologic History: Reports: None Immunologic History: Reports: None Oncologic (Cancer) History: Reports: None Dermatologic History: Reports: None - Infectious Disease History Infectious Disease History: Reports: Chicken Pox - Past Surgical History Head Surgeries/Procedures: Reports: None HEENT Surgical History: Reports: Oral Surgery, Tonsillectomy Cardiovascular Surgical History: Reports: None Respiratory Surgical History: Reports: None GI Surgical History: Reports: None Female Surgical History: Reports: Section Endocrine Surgical History: Reports: None Neurological Surgical History: Reports: None Musculoskeletal Surgical History: Reports: None Oncologic Surgical History: Reports: None Dermatological Surgical History: Reports: None Social & Family History - Family History Family Medical History: No Pertinent Family History Cardiac: Reports: [place] - Tobacco Use Tobacco Use Status *Q: Never Tobacco User - Caffeine Use Caffeine Use: Reports: Coffee Other Caffeine Use: dietary suppliments - Recreational Drug Use Recreational Drug Use: Yes Recreational Drug Type: Reports: Marijuana/Hashish Recreational Drug Use Frequency: Socially ED ROS GENERAL - Review of Systems Review Of Systems: See Below ED EXAM, GENERAL - Physical Exam Exam: See Below Course - Vital Signs Last Recorded V/S: Last Vital Signs Temp 36.5 C 11/03/20 20:04 Pulse 88 11/04/20 01:45 Resp 18 11/04/20 01:45 BP 132/72 11/04/20 01:45 Pulse Ox 99 11/04/20 01:45 - Orders/Labs/Meds Labs: Laboratory Tests 11/03/20 11/03/20 11/03/20 Range/Units 20:09 22:15 22:15 WBC 8.15 (4.0-11.0) K/uL RBC 2.98 L (4.30-5.90) M/uL Hgb 9.5 L (12.0-16.0) g/dL Hct 28.3 L (36.0-46.0) % MCV 95.0 (80.0-98.0) fL MCH 31.9 (27.0-32.0) pg MCHC 33.6 (31.0-37.0) g/dL RDW Std Deviation 49.7 (28.0-62.0) fl RDW Coeff of Shakira 15 (11.0-15.0) % Plt Count 481 H (150-400) K/uL MPV 9.30 (7.40-12.00) fL Neut % (Auto) 65.2 (48.0-80.0) % Lymph % (Auto) 23.2 (16.0-40.0) % Lane % (Auto) 8.5 (0.0-15.0) % Eos % (Auto) 2.9 (0.0-7.0) % Baso % (Auto) 0.2 (0.0-1.5) % Neut # (Auto) 5.3 (1.4-5.7) K/uL Lymph # (Auto) 1.9 (0.6-2.4) K/uL Lane # (Auto) 0.7 (0.0-0.8) K/uL Eos # (Auto) 0.2 (0.0-0.7) K/uL Baso # (Auto) 0.0 (0.0-0.1) K/uL Nucleated RBC % 0.0 /100WBC Nucleated RBCs # 0 K/uL Sodium 137 (136-145) mmol/L Potassium 3.6 (3.5-5.1) mmol/L Chloride 103 (98-107) mmol/L Carbon Dioxide 23.1 (21.0-32.0) mmol/L BUN 11 (7.0-18.0) mg/dL Creatinine 0.9 (0.6-1.0) mg/dL Est Cr Clr Drug Dosing 91.01 mL/min Estimated GFR (MDRD) > 60.0 ml/min Glucose 72 L (74-106) mg/dL Calcium 9.5 (8.5-10.1) mg/dL HCG, Quant 3459.0 mIU/mL Urine Color YELLOW Urine Appearance SLT CLOUDY Urine pH 6.0 (5.0-8.0) Ur Specific [place] <= 1.005 (1.001-1.035) Urine Protein 30 H (NEGATIVE) mg/dL Urine Glucose (UA) NEGATIVE (NEGATIVE) mg/dL Urine Ketones NEGATIVE (NEGATIVE) mg/dL Urine Occult Blood LARGE H (NEGATIVE) Urine Nitrite NEGATIVE (NEGATIVE) Urine Bilirubin NEGATIVE (NEGATIVE) Urine Urobilinogen 1.0 (<2.0) EU/dL Ur Leukocyte Esterase SMALL H (NEGATIVE) Urine RBC 3-6 (0-2/HPF) Urine WBC 5-10 (0-5/HPF) Ur Epithelial Cells FEW (NONE-FEW) Amorphous Sediment LIGHT (NEGATIVE) Urine Bacteria 1+ H (NEGATIVE) Departure - Departure Time of Disposition: 01:43 Disposition: Home, Self-Care 01 Condition: Fair Clinical Impression: Miscarriage - Discharge Information *PRESCRIPTION DRUG MONITORING PROGRAM REVIEWED*: No *COPY OF PRESCRIPTION DRUG MONITORING REPORT IN PATIENT JESSICA: No Instructions: Miscarriage, [id number], Pain Medicine Instructions, [id number], Managing Loss Referrals: PCP,None [Primary Care Provider] - Forms: ED Department Discharge Additional Instructions: Your evaluated today on an emergent basis. At this time there was some free fluid in your pelvis however the that was seen on prior ultrasound is no longer there. I did speak with plant puller who stated that this is expected. I do recommend that you follow-up at your scheduled appointment this week. If you have any worsening bleeding, pain or pus drainage please return to the emergency department. [facility] [address] [place] [id number] [facility] [address] [place] [id number] The patient is informed of any results of their evaluation and diagnostic workup and all questions are answered. They are given discharge instructions and return precautions. The patient is stable for discharge. The patient states they understand and agree with the plan and that they will return if their symptoms get worse or if they have any new concerns. The following information is given to patients seen in the emergency department who are being discharged to home. This information is to outline your options for follow-up care. We provide all patients seen in our emergency department with a follow-up referral. The need for follow-up, as well as the timing and circumstances, are variable depending upon the specifics of your emergency department visit. If you don't have a primary care physician on staff, we will provide you with a referral. We always advise you to contact your personal physician following an emergency department visit to inform them of the circumstance of the visit and for follow-up with them and/or the need for any referrals to a consulting specialist. The emergency department will also refer you to a specialist when appropriate. This referral assures that you have the opportunity for follow-up care with a specialist. All of these measure are taken in an effort to provide you with optimal care, which includes your follow-up. Under all circumstances we always encourage you to contact your private physician who remains a resource for coordinating your care. When calling for follow-up care, please make the office aware that this follow-up is from your recent emergency room visit. If for any reason you are refused follow-up, please contact the [facility] Emergency Department at and asked to speak to the emergency department charge nurse. Sepsis Event Note (ED) - Evaluation Sepsis Screening Result: No Definite Risk
[2020-11-04 01:53] VITALS: BP 132/72; PULSE 88
== END 2020-11-04 01:52 | disposition home or self-care (01) ==
LOC: MW.ED 19:29
DX: O03.9 Complete or unspecified spontaneous abortion without complication (principal); R94.8 Abnormal results of function studies of other organs and systems
CPT/HCPCS: 36415; 76817; 76817-26; 80048; 81001; 84702; 85025; 87086; 99284; 99284-25

== ENCOUNTER 2022-02-22 08:44 | Inpatient (IN) | payer BC ==
[2022-02-22] MEDS ORDERED: Sodium Chloride 0.9% 2.5 ML Syringe FLUSH PRN (09:40)
[2022-02-22] MEDS ORDERED: Sodium Chloride 0.9% 10 ML Syringe FLUSH PRN (09:40)
[2022-02-22] MEDS ORDERED: Methylergonovine 0.2 MG/1 ML Amp IM PRN (09:40)
[2022-02-22] MEDS ORDERED: Misoprostol 200 MCG Tab PO PRN (09:40)
[2022-02-22] MEDS ORDERED: Water For Irrigation,Sterile 1,000 ML Container IRR PRN (09:40)
[2022-02-22] MEDS ORDERED: Sodium Chloride 0.9% 20 ML SDV IV PRN (09:40)
[2022-02-22] MEDS ORDERED: Lidocaine 1% 50 ML MDV INJECT PRN (09:40)
[2022-02-22] MEDS ORDERED: Tranexamic Acid 1,000 MG in Sodium Chloride 0.9% 100 ML IV PRN (09:40)
[2022-02-22] MEDS ORDERED: Butorphanol 1 MG/ML SDV IVPUSH PRN (09:40)
[2022-02-22] MEDS ORDERED: Carboprost Tromethamine 250 MCG/1 ML Amp IM PRN (09:40)
[2022-02-22] MEDS ORDERED: Terbutaline 1 MG/ML SDV SUBCUT PRN (09:40)
[2022-02-22] MEDS ORDERED: Lactated Ringers 1,000 ML IV SCH (09:45)
[2022-02-22] MEDS ORDERED: Oxytocin/0.9 % Sodium Chloride 30 UNIT/500 ML BAG IV SCH ×2 (09:45)
[2022-02-22] MEDS ORDERED: Ondansetron 4 MG/2 ML SDV IVPUSH PRN (09:52)
[2022-02-22] MEDS ORDERED: ePHEDrine 50 MG/ML SDV IVPUSH PRN ×2 (10:22)
[2022-02-22] MEDS ORDERED: Ropivacaine HCl/PF 400 MG in Premix Bag 1 BAG EPIDUR SCH (10:30)
[2022-02-22] MEDS ORDERED: Witch Hazel Medicated Pads 40/Jar TOP PRN (17:02)
[2022-02-22] MEDS ORDERED: Bisacodyl 10 MG Supp RECTAL PRN (17:02)
[2022-02-22] MEDS ORDERED: Acetaminophen 500 MG Tab PO PRN ×2 (17:02)
[2022-02-22] MEDS ORDERED: Lanolin 100% Cream 7 GM Tube TOP PRN (17:02)
[2022-02-22] MEDS ORDERED: Ibuprofen 400 MG Tab PO PRN (17:02)
[2022-02-22] MEDS ORDERED: Benzocaine/Menthol 20%-0.5% Spray 78 GM Cannister TOP PRN (17:02)
[2022-02-22] MEDS ORDERED: Docusate Sodium 100 MG Cap PO PRN (17:02)
[2022-02-22] MEDS ORDERED: oxyCODONE 5 MG Tab PO PRN (17:02)
[2022-02-22] MEDS: Ibuprofen 800 MG Tab PO PRN (20:02)
[2022-02-23] MEDS: Ibuprofen 800 MG Tab PO PRN (06:42)
[2022-02-23 07:40] VITALS: BP 117/56; PULSE 68
== END 2022-02-23 18:29 | disposition home or self-care (01) | DRG 560 ==
LOC: MW.OBCHECK 08:44 → MW.OB 08:45 → MW.OBCHECK 11:00 → OBSVTOIN 16:29 → MW.OB 21:14
PROVIDERS: ADMIT Obstetrics & Gynecology; ATTEND Obstetrics & Gynecology
PROC: 10E0XZZ Delivery of Products of Conception, External Approach (ICD-10-PCS; principal; 2022-02-22)
PROC: 3E0R3BZ Introduction of Anesthetic Agent into Spinal Canal, Percutaneous Approach (ICD-10-PCS; 2022-02-22)
PROC: 00HU33Z Insertion of Infusion Device into Spinal Canal, Percutaneous Approach (ICD-10-PCS; 2022-02-22)
PROC: 10907ZC Drainage of Amniotic Fluid, Therapeutic from Products of Conception, Via Natural or Artificial Opening (ICD-10-PCS; 2022-02-22)
PROC: 0UBGXZZ Excision of Vagina, External Approach (ICD-10-PCS; 2022-02-22)
DX: O48.0 Post-term pregnancy (principal); Z3A.40 40 weeks gestation of pregnancy; Z37.0 Single live birth; O99.344 Other mental disorders complicating childbirth; F41.9 Anxiety disorder, unspecified; F32.A Depression, unspecified; Z20.822 Contact with and (suspected) exposure to COVID-19; O77.0 Labor and delivery complicated by meconium in amniotic fluid
CPT/HCPCS: 01967; 36415; 51702; 59025; 59409; 80305-QW; 81003; 82803; 85014; 85018; 85027; 86592; 86850; 86900; 86901; A9270-GY; J2370; J2405; J2590; J2795; J7120; U0002

== ENCOUNTER 2022-05-28 20:56 | Emergency (ER) | payer BC ==
[2022-05-28 21:06] VITALS: BP 130/75
[2022-05-28] MEDS ORDERED: Ciprofloxacin/Dexamethasone 0.3-0.1% Otic Susp 7.5 ML Bottle EARLF SCH (21:15)
[2022-05-28 22:10] VITALS: PULSE 68
== END 2022-05-28 22:08 | disposition home or self-care (01) ==
LOC: MW.ED 20:56
DX: H60.92 Unspecified otitis externa, left ear (principal)
CPT/HCPCS: 99282; 99283

== ENCOUNTER 2022-10-16 20:20 | Emergency (ER) | payer BC ==
[2022-10-16 21:35] LABS: ACETAMINOPHEN <2.0 ug/mL; BLOOD UREA NITROGEN,BUN 7 mg/dL (7.0-18.0); CARBON DIOXIDE,CO2 21.4 mmol/L (21.0-32.0); CHLORIDE,CL 104 mmol/L (98-107); GLUCOSE RANDOM 77 mg/dL (74-106); POTASSIUM,K 3.5 mmol/L (3.5-5.1); SODIUM,NA 138 mmol/L (136-145)
[2022-10-16 21:37] LABS: ESTIMATED GFR 105 mL/min (>60)
[2022-10-17 09:32] VITALS: BP 112/52; PULSE 78
== END 2022-10-17 09:58 ==
LOC: MW.ED 20:20
DX: O99.342 Other mental disorders complicating pregnancy, second trimester (principal); F32.A Depression, unspecified; R45.851 Suicidal ideations; Z20.822 Contact with and (suspected) exposure to COVID-19; Z3A.14 14 weeks gestation of pregnancy
CPT/HCPCS: 36415; 80053; 80143; 80179; 80305-QW; 80307; 81001; 84443; 85025; 87086; 93005; 93010; 99285; U0002

== ENCOUNTER 2023-04-12 05:23 | Inpatient (IN) | payer BC ==
[2023-04-12] MEDS: Lactated Ringers 1,000 ML IV SCH ×3 (05:45→12:37)
[2023-04-12] MEDS ORDERED: Sodium Chloride 0.9% 2.5 ML Syringe FLUSH PRN (05:54)
[2023-04-12] MEDS ORDERED: Carboprost Tromethamine 250 MCG/1 mL Vial IM PRN (05:54)
[2023-04-12] MEDS ORDERED: Water For Irrigation,Sterile 1,000 ML Container IRR PRN (05:54)
[2023-04-12] MEDS ORDERED: Sodium Chloride 0.9% 10 ML Syringe FLUSH PRN (05:54)
[2023-04-12] MEDS ORDERED: Butorphanol 1 MG/ML SDV IVPUSH PRN (05:54)
[2023-04-12] MEDS ORDERED: Tranexamic Acid 1,000 MG in Sodium Chloride 0.9% 100 ML IV PRN (05:54)
[2023-04-12] MEDS ORDERED: Misoprostol 200 MCG Tab PO PRN (05:54)
[2023-04-12] MEDS ORDERED: Lidocaine 1% 50 ML MDV INJECT PRN (05:54)
[2023-04-12] MEDS ORDERED: Methylergonovine 0.2 MG/1 ML Amp IM PRN (05:54)
[2023-04-12] MEDS ORDERED: Sodium Chloride 0.9% 20 ML SDV IV PRN (05:54)
[2023-04-12] MEDS ORDERED: Oxytocin/0.9 % Sodium Chloride 30 UNIT/500 ML BAG IV SCH ×2 (06:00→09:30)
[2023-04-12 06:14] LABS: HEMATOCRIT 34.3 % (36.0-46.0); MEAN CORPUSCULAR HEMOGLOBIN 25.1 pg (27.0-32.0); MEAN CORPUSCULAR HGB CONC 32.1 g/dL (31.0-37.0); MEAN CORPUSCULAR VOLUME 78.1 fL (80.0-98.0); MEAN PLATELET VOLUME 11.4 fL (7.40-12.00); RED BLOOD CELL COUNT 4.39 M/uL (4.30-5.90); WHITE BLOOD CELL COUNT,WBC 9.32 K/uL (4.0-11.0)
[2023-04-12] MEDS ORDERED: Ropivacaine/PF 400 MG/200 ML PCA ONE (06:33)
[2023-04-12] MEDS ORDERED: Bupivacaine 0.5% 10 ML SDV ONE (06:33)
[2023-04-12] MEDS ORDERED: Phenylephrine HCl 0.5 MG/5 ML AMP IVPUSH PRN (07:03)
[2023-04-12] MEDS ORDERED: ePHEDrine 50 MG/ML SDV IVPUSH PRN ×2 (07:03)
[2023-04-12] MEDS ORDERED: Ropivacaine HCl/PF 400 MG in Premix Bag 1 BAG EPIDUR SCH (07:15)
[2023-04-12] MEDS ORDERED: Ondansetron 4 MG/2 ML SDV IVPUSH ONE (08:12)
[2023-04-12] MEDS ORDERED: Benzocaine/Menthol 20%-0.5% Spray 78 GM Cannister TOP PRN (18:00)
[2023-04-12] MEDS ORDERED: Acetaminophen 500 MG Tab PO PRN (18:00)
[2023-04-12] MEDS ORDERED: Ibuprofen 400 MG Tab PO PRN (18:00)
[2023-04-12] MEDS ORDERED: Lanolin 100% Cream 7 GM Tube TOP PRN (18:00)
[2023-04-12] MEDS ORDERED: Witch Hazel Medicated Pads 40/Jar TOP PRN (18:00)
[2023-04-12] MEDS ORDERED: Bisacodyl 10 MG Supp RECTAL PRN (18:00)
[2023-04-12] MEDS ORDERED: Docusate Sodium 100 MG Cap PO PRN (18:00)
[2023-04-12] MEDS: Ibuprofen 800 MG Tab PO PRN (18:07)
[2023-04-12] MEDS: Acetaminophen 500 MG Tab PO PRN (20:34)
[2023-04-13 05:26] LABS: HEMATOCRIT 29.1 % (36.0-46.0); HEMOGLOBIN 9.2 g/dL (12.0-16.0)
[2023-04-13] MEDS: Ibuprofen 800 MG Tab PO PRN (07:47)
[2023-04-13] MEDS: Acetaminophen 500 MG Tab PO PRN (13:14)
[2023-04-13 17:02] VITALS: BP 112/71; PULSE 68
== END 2023-04-13 17:35 | disposition home or self-care (01) | DRG 560 ==
LOC: MW.OBCHECK 05:23 → MW.OB 05:27 → MW.OBCHECK 08:23 → MW.OB 08:23 → OBSVTOIN 12:23 → MW.OB 12:32 → MW.OBCHECK 12:32 → MW.OB 16:09
PROVIDERS: ADMIT Obstetrics & Gynecology Obstetrics; ATTEND Obstetrics & Gynecology Obstetrics
PROC: 10E0XZZ Delivery of Products of Conception, External Approach (ICD-10-PCS; principal; 2023-04-12)
PROC: 3E0R3BZ Introduction of Anesthetic Agent into Spinal Canal, Percutaneous Approach (ICD-10-PCS; 2023-04-12)
PROC: 00HU33Z Insertion of Infusion Device into Spinal Canal, Percutaneous Approach (ICD-10-PCS; 2023-04-12)
PROC: 3E033VJ Introduction of Other Hormone into Peripheral Vein, Percutaneous Approach (ICD-10-PCS; 2023-04-12)
DX: O77.0 Labor and delivery complicated by meconium in amniotic fluid (principal); Z37.0 Single live birth; Z90.49 Acquired absence of other specified parts of digestive tract; Z98.890 Other specified postprocedural states; Z86.16 Personal history of COVID-19; Z3A.39 39 weeks gestation of pregnancy
CPT/HCPCS: 36415; 51702; 59025; 59409; 85014; 85018; 85027; 86592; 86850; 86900; 86901; A9270-GY; J2405; J2590; J2795; J3490; J7120

== ENCOUNTER 2024-03-03 23:33 | Emergency (ER) | payer BC ==
[2024-03-03] MEDS: Activated Charcoal/Sorbitol Susp 50 GM/240 ML Tube PO STA (23:40)
[2024-03-03 23:56] LABS: BASOPHILS ABSOLUTE AUTO 0.07 K/uL (0.00-0.20); EOSINOPHILS PERCENT AUTO 2.7 % (0.0-6.0); HEMATOCRIT 43.8 % (37.0-47.0); HEMOGLOBIN 15.6 g/dL (12.0-16.0); IMMATURE GRAN ABSOLUTE AUTO 0.01 K/uL (0.00-0.05); IMMATURE GRAN PERCENT AUTO 0.1 % (0.0-0.4); LYMPHOCYTES ABSOLUTE AUTO 2.48 K/uL (1.00-4.80); LYMPHOCYTES PERCENT AUTO 33.7 % (24.0-44.0); MEAN CORPUSCULAR HEMOGLOBIN 32.3 pg (28.0-32.0); MEAN CORPUSCULAR HGB CONC 35.6 g/dL (32.0-36.0); MEAN CORPUSCULAR VOLUME 90.7 fL (83.0-99.0); MEAN PLATELET VOLUME 9.6 fL (9.4-12.3); MONOCYTES ABSOLUTE AUTO 0.44 K/uL (0.00-0.80); NEUTROPHILS ABSOLUTE AUTO 4.16 K/uL (1.80-7.70); NEUTROPHILS PERCENT AUTO 56.5 % (41.0-71.0); PLATELET COUNT,PLT 438 K/uL (150-400); RED BLOOD CELL COUNT 4.83 M/uL (4.10-5.30); WHITE BLOOD CELL COUNT,WBC 7.36 K/uL (3.9-11.3)
[2024-03-04 00:13] LABS: A/G RATIO 1.1 (0.9-1.6); ALBUMIN 4.6 g/dL (3.4-5.0); BILIRUBIN TOTAL 0.2 mg/dL (0.2-1.0); CALCIUM 9.8 mg/dL (8.5-10.1); CARBON DIOXIDE,CO2 19.4 mmol/L (21.0-32.0); CREATININE 0.9 mg/dL (0.6-1.0); EST CRCL DRUG DOSING (CG) 92.11 mL/min; POTASSIUM,K 3.5 mmol/L (3.5-5.1); PROTEIN TOTAL,TP 8.8 g/dL (6.4-8.2)
[2024-03-04 00:23] LABS: ACETAMINOPHEN <2.0 ug/mL; ETHANOL BLOOD MEDICAL 254 mg/dL; MAGNESIUM 2.5 mg/dL (1.8-2.4); TSH ULTRASENSITIVE 0.52 uIU/mL (0.36-3.74)
[2024-03-04] MEDS: LORazepam 2 MG/ML SDV IVPUSH ONE ×2 (00:39→04:56)
[2024-03-04] MEDS: Sodium Chloride 0.9% 1,000 ML IV STA (00:39)
[2024-03-04 00:44] LABS: BILIRUBIN,URINE NEGATIVE (NEGATIVE); COLOR,URINE YELLOW; GLUCOSE,URINE NEGATIVE (NEGATIVE); KETONES,URINE NEGATIVE (NEGATIVE); LEUKOCYTE ESTERASE,URINE LARGE (NEGATIVE); NITRITE,URINE NEGATIVE (NEGATIVE); OCCULT BLOOD,URINE SMALL (NEGATIVE); PROTEIN,URINE NEGATIVE (NEGATIVE); UROBILINOGEN,URINE 0.2 EU/dL (<2.0)
[2024-03-04 00:49] LABS: AMPHETAMINES SCREEN, URINE NEGATIVE (CUTOFF=500); BARBITURATE SCREEN,URINE NEGATIVE (CUTOFF=200); BENZODIAZEPINES SCREEN,URINE NEGATIVE (CUTOFF=150); BUPRENORPHINE SCREEN,URINE NEGATIVE (CUTOFF=10); METHADONE SCREEN, URINE NEGATIVE (CUTOFF=200); METHAMPHETAMINES SCREEN, URINE NEGATIVE (CUTOFF=500); OXYCODONE SCREEN,URINE NEGATIVE (CUT0FF=100); PCP SCREEN,URINE NEGATIVE (CUTOFF=25); THC SCREEN,URINE 20 NG/ML NEGATIVE (CUTOFF=50)
[2024-03-04 00:50] LABS: APPEARANCE,URINE HAZY; BACTERIA,URINE FEW (NEGATIVE); EPITHELIAL CELLS,URINE RARE (NONE-FEW); RBC,URINE 0-2 (0-2/HPF); WBC,URINE 20-25 (0-5/HPF)
[2024-03-04 06:56] VITALS: BP 140/87
[2024-03-04 07:02] VITALS: PULSE 99
== END 2024-03-04 15:43 ==
LOC: MW.ED 23:33
DX: T43.222A Poisoning by selective serotonin reuptake inhibitors, intentional self-harm, initial encounter (principal); F32.A Depression, unspecified; Z86.16 Personal history of COVID-19
CPT/HCPCS: 36415; 80053; 80143; 80179; 80305; 80307; 81001; 83735; 84443; 84703; 85025; 87086; 87088; 87186; 93005; 96361; 96374; 96376; 99285; J2060; J7030; 93010

== ENCOUNTER 2024-03-10 15:13 | Emergency (ER) | payer BC ==
[2024-03-10 16:23] LABS: BASOPHILS ABSOLUTE AUTO 0.05 K/uL (0.00-0.20); BASOPHILS PERCENT AUTO 0.5 % (0.0-1.0); EOSINOPHILS ABSOLUTE AUTO 0.06 K/uL (0.00-0.45); EOSINOPHILS PERCENT AUTO 0.6 % (0.0-6.0); HEMATOCRIT 40.6 % (37.0-47.0); HEMOGLOBIN 14.5 g/dL (12.0-16.0); IMMATURE GRAN ABSOLUTE AUTO 0.01 K/uL (0.00-0.05); IMMATURE GRAN PERCENT AUTO 0.1 % (0.0-0.4); LYMPHOCYTES PERCENT AUTO 18.7 % (24.0-44.0); MEAN CORPUSCULAR HEMOGLOBIN 32.4 pg (28.0-32.0); MEAN CORPUSCULAR HGB CONC 35.7 g/dL (32.0-36.0); MEAN CORPUSCULAR VOLUME 90.8 fL (83.0-99.0); MEAN PLATELET VOLUME 9.3 fL (9.4-12.3); MONOCYTES ABSOLUTE AUTO 0.51 K/uL (0.00-0.80); NEUTROPHILS ABSOLUTE AUTO 7.65 K/uL (1.80-7.70); NEUTROPHILS PERCENT AUTO 75.1 % (41.0-71.0); PLATELET COUNT,PLT 389 K/uL (150-400); RED BLOOD CELL COUNT 4.47 M/uL (4.10-5.30); WHITE BLOOD CELL COUNT,WBC 10.18 K/uL (3.9-11.3)
[2024-03-10 16:36] LABS: APPEARANCE,URINE SLT CLOUDY; BILIRUBIN,URINE NEGATIVE (NEGATIVE); COLOR,URINE YELLOW; GLUCOSE,URINE NEGATIVE (NEGATIVE); KETONES,URINE NEGATIVE (NEGATIVE); LEUKOCYTE ESTERASE,URINE NEGATIVE (NEGATIVE); NITRITE,URINE NEGATIVE (NEGATIVE); OCCULT BLOOD,URINE TRACE-INTACT (NEGATIVE); PROTEIN,URINE 30 mg/dL (NEGATIVE); UROBILINOGEN,URINE 0.2 EU/dL (<2.0)
[2024-03-10 16:45] LABS: AMPHETAMINES SCREEN, URINE NEGATIVE (CUTOFF=500); BACTERIA,URINE RARE (NEGATIVE); BARBITURATE SCREEN,URINE NEGATIVE (CUTOFF=200); BENZODIAZEPINES SCREEN,URINE NEGATIVE (CUTOFF=150); BUPRENORPHINE SCREEN,URINE NEGATIVE (CUTOFF=10); EPITHELIAL CELLS,URINE RARE (NONE-FEW); METHADONE SCREEN, URINE NEGATIVE (CUTOFF=200); METHAMPHETAMINES SCREEN, URINE NEGATIVE (CUTOFF=500); MUCUS,URINE LIGHT (NONE-MOD); OXYCODONE SCREEN,URINE NEGATIVE (CUT0FF=100); PCP SCREEN,URINE NEGATIVE (CUTOFF=25); RBC,URINE 0-3 (0-2/HPF); THC SCREEN,URINE 20 NG/ML NEGATIVE (CUTOFF=50)
[2024-03-10 17:13] LABS: A/G RATIO 1.3 (0.9-1.6); ACETAMINOPHEN <2.0 ug/mL; ALANINE AMINOTRANSFERASE,ALT 35 IU/L (14-63); ALBUMIN 4.6 g/dL (3.4-5.0); ALKALINE PHOSPHATASE 88 U/L (46-116); ASPARTATE AMNIOTRANSFERASE,AST 16 IU/L (15-37); BILIRUBIN TOTAL 0.3 mg/dL (0.2-1.0); BLOOD UREA NITROGEN,BUN 10 mg/dL (7.0-18.0); CALCIUM 9.3 mg/dL (8.5-10.1); CARBON DIOXIDE,CO2 18.7 mmol/L (21.0-32.0); CHLORIDE,CL 103 mmol/L (98-107); CREATININE 0.7 mg/dL (0.6-1.0); EST CRCL DRUG DOSING (CG) 118.43 mL/min; ETHANOL BLOOD MEDICAL 73 mg/dL; GLUCOSE RANDOM 84 mg/dL (74-106); MAGNESIUM 1.9 mg/dL (1.8-2.4); POTASSIUM,K 3.5 mmol/L (3.5-5.1); PROTEIN TOTAL,TP 8.2 g/dL (6.4-8.2); SALICYLATE 1.4 mg/dL (0.0-20.0); SODIUM,NA 140 mmol/L (136-145)
[2024-03-10 17:16] LABS: ESTIMATED GFR 122 mL/min (>60)
[2024-03-10] MEDS: LORazepam 0.5 MG Tab PO ONE (17:31)
[2024-03-10 19:23] VITALS: BP 129/90; PULSE 90
== END 2024-03-10 19:23 ==
LOC: MW.ED 15:13
DX: F32.A Depression, unspecified (principal)
CPT/HCPCS: 36415; 80053; 80143; 80179; 80305; 80307; 81001; 81025; 83735; 85025; 93005; 99285; A9270

== ENCOUNTER 2025-03-21 17:57 | Emergency (ER) | payer OTHER ==
[2025-03-21] MEDS ORDERED: Sodium Chloride 0.9% 10 ML Syringe FLUSH PRN (18:02)
[2025-03-21] MEDS ORDERED: Sodium Chloride 0.9% 2.5 ML Syringe FLUSH PRN (18:02)
[2025-03-21 18:09] LABS: BASOPHILS ABSOLUTE AUTO 0.09 K/uL (0.00-0.20); BASOPHILS PERCENT AUTO 1.0 % (0.0-1.0); EOSINOPHILS ABSOLUTE AUTO 0.36 K/uL (0.00-0.45); EOSINOPHILS PERCENT AUTO 4.1 % (0.0-6.0); IMMATURE GRAN ABSOLUTE AUTO 0.01 K/uL (0.00-0.05); IMMATURE GRAN PERCENT AUTO 0.1 % (0.0-0.4); LYMPHOCYTES ABSOLUTE AUTO 2.78 K/uL (1.00-4.80); LYMPHOCYTES PERCENT AUTO 31.6 % (24.0-44.0); MEAN PLATELET VOLUME 10.4 fL (9.4-12.3); MONOCYTES ABSOLUTE AUTO 0.40 K/uL (0.00-0.80); MONOCYTES PERCENT AUTO 4.6 % (0.0-8.0); NEUTROPHILS ABSOLUTE AUTO 5.15 K/uL (1.80-7.70); NEUTROPHILS PERCENT AUTO 58.6 % (41.0-71.0); NRBC ABSOLUTE 0.00 K/uL (0.00-0.02); NRBC PERCENT 0.0 /100WBC (0.0-0.2); PLATELET COUNT,PLT 333 K/uL (150-400); RED BLOOD CELL COUNT 4.60 M/uL (4.10-5.30); WHITE BLOOD CELL COUNT,WBC 8.79 K/uL (3.9-11.3)
[2025-03-21] MEDS: Iopamidol 755 MG/ML 500 ML Multipack Bottle IVPUSH STA (18:31)
[2025-03-21 19:13] LABS: A/G RATIO 1.2 (0.9-1.6); ALANINE AMINOTRANSFERASE,ALT 33 IU/L (14-63); ASPARTATE AMNIOTRANSFERASE,AST 22 IU/L (15-37); BILIRUBIN TOTAL 0.3 mg/dL (0.2-1.0); BLOOD UREA NITROGEN,BUN 11 mg/dL (7.0-18.0); CARBON DIOXIDE,CO2 15.5 mmol/L (21.0-32.0); CHLORIDE,CL 109 mmol/L (98-107); CREATININE 0.9 mg/dL (0.6-1.0); ETHANOL BLOOD MEDICAL 172 mg/dL; GLUCOSE RANDOM 87 mg/dL (74-106); POTASSIUM,K 3.9 mmol/L (3.5-5.1); PROTEIN TOTAL,TP 7.6 g/dL (6.4-8.2); SODIUM,NA 144 mmol/L (136-145)
[2025-03-21 19:14] LABS: ESTIMATED GFR 90 mL/min (>60)
[2025-03-21 19:15] LABS: INR 0.96 (0.86-1.11)
[2025-03-21] MEDS: Ketorolac 30 MG/ML SDV IVPUSH ONE (20:00)
[2025-03-21 20:07] VITALS: BP 122/85; PULSE 100
== END 2025-03-21 20:07 ==
LOC: MW.ED 17:57
DX: S06.9X9A Unspecified intracranial injury with loss of consciousness of unspecified duration, initial encounter (principal); S29.8XXA Other specified injuries of thorax, initial encounter; S39.91XA Unspecified injury of abdomen, initial encounter; N83.202 Unspecified ovarian cyst, left side; M25.511 Pain in right shoulder; F10.120 Alcohol abuse with intoxication, uncomplicated; Y90.9 Presence of alcohol in blood, level not specified; V49.49XA Driver injured in collision with other motor vehicles in traffic accident, initial encounter; Y93.89 Activity, other specified
CPT/HCPCS: 36415; 70450; 71260; 72125; 73070; 73090; 73590; 74177; 80053; 80307; 83690; 84703; 85025; 85610; 96374; 99284; J1885; Q9967; 99283